=== PATIENT | male | born 1965 | race Caucasian/White ===

== ENCOUNTER 2017-03-01 14:53 | Emergency (ER) | payer BC, SELFPAY ==
[2017-03-01] MEDS ORDERED: methylPREDNISolone SOD SUCCI 125 MG/2 ML VIAL IV STA (15:42)
[2017-03-01] MEDS ORDERED: diphenhydrAMINE 50 MG/ML 1 ML VIAL IVP STA (15:42)
[2017-03-01] MEDS ORDERED: FAMOTIDINE 20 MG/2 ML VIAL IV STA (15:42)
[2017-03-01] MEDS ORDERED: SODIUM CHLORIDE 0.9% 500 ML IV STA (15:42)
--- NOTE | 2017-03-01 15:54 | ED ---
General Adult HPI - General Chief complaint: Skin/Abscess/Foreign Body Stated complaint: Rash Source: patient Mode of arrival: ambulatory Limitations: no limitations - History of Present Illness Initial comments: 51-year-old male presenting for evaluation of diffuse rash over his entire body that started this morning. He states that the rash started as an itching and redness and is now progressed to raised welts all over his body. He denies any changes in his dietary habits, no new medications although he started a new pack of Symbicort last night. 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 Other than that pruritus he denies any other associated symptoms including eruptions in the skin, dyspnea, dysphagia, chest pain, shortness of breath, fevers, chills. This never happened to him before and he denies any ALLERGIES. He has taken no medications for relief of his symptoms. - Related Data Home Medications Medication Instructions Recorded Confirmed Albuterol Inhaler [Ventolin Hfa 2 puff INHALATION RT-Q6H PRN 08/22/16 08/22/16 Inhaler] Atorvastatin [Lipitor] 40 mg PO DAILY 08/22/16 08/22/16 Hydrocodone/Acetaminophen 1 tab PO Q6H PRN 08/22/16 08/22/16 [Hydrocodon-Acetaminoph 7.5-325] Metoprolol Tartrate [Lopressor] 25 mg PO DAILY 08/22/16 08/22/16 Multivitamins, Thera [Multivitamin 1 tab PO DAILY 08/22/16 08/22/16 (formulary)] amLODIPine BESYLATE [Amlodipine 10 mg PO DAILY 08/22/16 08/22/16 Besylate] Aspirin 325 mg PO DAILY 03/01/17 03/01/17 Budesonide/Formoterol Fumarate 2 puff INHALATION RT-BID 03/01/17 03/01/17 [Symbicort 160-4.5 Mcg Inhaler] Ipratropium [place] [Atrovent Hfa] 2 puff INHALATION RT-QID PRN 03/01/17 Lisinopril [Prinivil] 10 mg PO DAILY 03/01/17 03/01/17 Nicotine Polacrilex [Quit 4] 4 mg BUCCAL Q2H PRN 03/01/17 03/01/17 Previous Rx's Medication Instructions Recorded EPINEPHrine [Epipen 2-Rodrigo] 0.3 mg IJ ONCE PRN #1 auto.injct 03/01/17 Allergies Allergy/AdvReac Type Severity Reaction Status Date / Time No Known Allergies Allergy Verified 03/01/17 16:30 Review of Systems ROS Statement: Those systems with pertinent positive or pertinent negative responses have been documented in the HPI. ROS Other: All systems not noted in ROS Statement are negative. Constitutional: Denies: fever, chills Eyes: Denies: eye pain, eye discharge ENT: Denies: ear pain, throat pain Respiratory: Denies: cough, dyspnea, wheezes Cardiovascular: Denies: chest pain, palpitations, dyspnea on exertion Endocrine: Denies: fatigue, polydipsia, polyuria Gastrointestinal: Denies: abdominal pain, nausea, vomiting Genitourinary: Denies: urgency, dysuria Musculoskeletal: Denies: back pain, arthralgia Skin: Reports: rash, change in color, pruritus. Denies: change in hair/nails Neurological: Denies: headache, weakness Psychiatric: Denies: anxiety, depression Hematological/Lymphatic: Denies: easy bleeding, easy bruising Past Medical History Past Medical History: Coronary Artery Disease (CAD), COPD, Hyperlipidemia, Hypertension, Liver Disease Additional Past Medical History / Comment(s): CHRONIC RECURRENT BRONCHITIS, CHRONIC LOWER BACK PAIN SPINAL STENOSIS, SCOLIOSIS, SPINAL, ALCOHOLISM ( 8 BEERS DAILY), HYPERTENSION, HYPERLIPIDEMIA, CORONARY ARTERY DISEASE, ABNORMAL LFT'S History of Any Multi-Drug Resistant Organisms: None Reported Past Surgical History: Heart Catheterization Additional Past Surgical History / Comment(s): COLONOSCOPY/POLYPECTOMY(BENIGN) Past Anesthesia/Blood Transfusion Reactions: No Reported Reaction Past Psychological History: No Psychological Hx Reported Smoking Status: Former smoker Past Alcohol Use History: Daily Additional Past Alcohol Use History / Comment(s): STARTED SMOKING AT AGE 11- SEVERAL ATTEMPTS AT QUITING-HAS'NT SMOKED IN A MONTH. PT ADMITS TO DRINKING 8 BEER PER DAY. DENIES ANY DRUG USE. Past Drug Use History: None Reported - Past Family History Father Family Medical History: Myocardial Infarction ([place]) Additional Family Medical History / Comment(s): AT AGE 56 FROM [place] Mother Family Medical History: Cancer, Coronary Artery Disease (CAD) Additional Family Medical History / Comment(s): BREAST CANCER METS TO BONE, CABG , EMPHYSEMA General Exam Limitations: no limitations General appearance: alert, in no apparent distress Head exam: Present: atraumatic, normocephalic, normal inspection Eye exam: Present: normal appearance, PERRL, EOMI. Absent: scleral icterus, conjunctival injection, periorbital swelling ENT exam: Present: normal exam, mucous membranes moist Neck exam: Present: normal inspection. Absent: tenderness, meningismus, lymphadenopathy Respiratory exam: Present: normal lung sounds bilaterally. Absent: respiratory distress, wheezes, rales, rhonchi, stridor Cardiovascular Exam: Present: regular rate, normal rhythm, normal heart sounds. Absent: systolic murmur, diastolic murmur, rubs, gallop, clicks GI/Abdominal exam: Present: soft, normal bowel sounds. Absent: distended, tenderness, guarding, rebound, rigid Rectal exam: Present: deferred Extremities exam: Present: normal inspection, full ROM, normal capillary refill. Absent: tenderness, pedal edema, joint swelling, calf tenderness Back exam: Present: normal inspection Neurological exam: Present: alert, oriented X3, CN II-XII intact Psychiatric exam: Present: normal affect, normal mood Skin exam: Present: warm, dry, intact, erythema, urticaria. Absent: cyanosis, diaphoretic, petechiae, pallor, abrasion Course Vital Signs 03/01/17 15:21 Temperature 99.1 F Pulse Rate 84 Respiratory 18 Rate Blood Pressure 138/78 O2 Sat by Pulse 96 Oximetry Medical Decision Making - Medical Decision Making 51-year-old male presented for evaluation of ALLERGIC reaction symptoms with pruritic, erythematous, and raised rash across his entire body. He denies any changes in his diet, work, large urgent, clothes, or change in medications although he just had his Symbicort refilled and started taking it last night. On physical examination he has an urticarial rash with clear lung sounds bilaterally and a non-erythematous nonswollen oropharynx. Patient was provided with IV doses of Benadryl, famotidine, and Solu-Medrol as well as IV fluids and on repeat physical exam he had resolution of pruritus, resolution of erythema, and welts had markedly regressed. Although no etiology can be identified the patient is stable for discharge home. Also provide the patient with epi-pens and discussion had with the patient concerning appropriate uses. Concerning the Symbicort the patient was told that he should have another refill made as this is the only change in his home status. He was advised to follow-up with his primary care physician but to return to this facility if his symptoms should worsen or persist. He acknowledged an understanding of this information and agreed with this plan of care. Disposition Clinical Impression: Allergic reaction Disposition: HOME SELF-CARE Condition: Stable Instructions: General Allergic Reaction (ED), Urticaria (ED), Anaphylaxis (ED) Additional Instructions: Please use medication as discussed. Please follow up with family doctor if symptoms have not improved over the next two days. Please return to the emergency room if your symptoms increase or worsen or for any other concerns. Prescriptions: EPINEPHrine [Epipen 2-Rodrigo] 0.3 mg IJ ONCE PRN #1 auto.injct PRN Reason: Allergic Reaction Time of Disposition: 16:40
[2017-03-01 16:55] VITALS: BP 129/77; PULSE 60; RESP 16; TEMP 98.1
== END 2017-03-01 16:56 | disposition home or self-care (01) ==
LOC: EC 14:53
DX: T78.40XA Allergy, unspecified, initial encounter (principal); E78.5 Hyperlipidemia, unspecified; I10 Essential (primary) hypertension; I25.10 Atherosclerotic heart disease of native coronary artery without angina pectoris; J44.9 Chronic obstructive pulmonary disease, unspecified; Z79.52 Long term (current) use of systemic steroids; Z87.891 Personal history of nicotine dependence; Z79.82 Long term (current) use of aspirin; Z79.899 Other long term (current) drug therapy
CPT/HCPCS: 99282; 96374; 96375 ×2; J1200; J2930

== ENCOUNTER 2017-04-25 10:45 | Inpatient (IN) | payer BC ==
[2017-04-25] MEDS ORDERED: ALBUTEROL NEBULIZED 2.5 MG/3 ML INHALATION STA ×2 (10:51→10:53)
--- NOTE | 2017-04-25 11:11 | ED ---
General Adult HPI - General Chief complaint: Shortness of Breath Stated complaint: diff breathing Time Seen by Provider: 04/25/17 10:47 Source: patient, EMS, RN notes reviewed Mode of arrival: EMS Limitations: no limitations - History of Present Illness Initial comments: this is a 51-year-old male presents emergency room with past medical history significant for significant smoking. Patient states this morning he woke up inside of difficulty breathing and Progressively worse. Patient called EMS because he was extremely short of breath. Patient states in route to get steroids and a breathing treatment he feels better already. Patient denies any chest pain or palpitations. Patient denies any fever chills or cough recently. Patient denies abdominal pain patient denies nausea vomiting or diarrhea. Patient denies any lightheadedness dizziness or near syncopal episode. - Related Data Home Medications Medication Instructions Recorded Confirmed Albuterol Inhaler [Ventolin Hfa 2 puff INHALATION RT-QID PRN 08/22/16 04/25/17 Inhaler] Hydrocodone/Acetaminophen 1 tab PO Q6H PRN 08/22/16 04/25/17 [Hydrocodon-Acetaminoph 7.5-325] Metoprolol Tartrate [Lopressor] 25 mg PO DAILY 08/22/16 04/25/17 Multivitamins, Thera [Multivitamin 1 tab PO DAILY 08/22/16 04/25/17 (formulary)] amLODIPine BESYLATE [Amlodipine 10 mg PO DAILY 08/22/16 04/25/17 Besylate] Aspirin 325 mg PO DAILY 03/01/17 04/25/17 Budesonide/Formoterol Fumarate 2 puff INHALATION RT-BID 03/01/17 04/25/17 [Symbicort 160-4.5 Mcg Inhaler] Ipratropium [place] [Atrovent Hfa] 2 puff INHALATION RT-QID PRN 03/01/17 Lisinopril [Prinivil] 10 mg PO DAILY 03/01/17 04/25/17 Nicotine Polacrilex [Quit 4] 4 mg BUCCAL Q2H PRN 03/01/17 04/25/17 Previous Rx's Medication Instructions Recorded EPINEPHrine [Epipen 2-Rodrigo] 0.3 mg IJ ONCE PRN #1 auto.injct 03/01/17 Allergies Allergy/AdvReac Type Severity Reaction Status Date / Time meloxicam [From Mobic] AdvReac Nausea Verified 04/25/17 11:19 Review of Systems ROS Statement: Those systems with pertinent positive or pertinent negative responses have been documented in the HPI. ROS Other: All systems not noted in ROS Statement are negative. Past Medical History Past Medical History: Coronary Artery Disease (CAD), COPD, Hyperlipidemia, Hypertension, Liver Disease Additional Past Medical History / Comment(s): CHRONIC RECURRENT BRONCHITIS, CHRONIC LOWER BACK PAIN SPINAL STENOSIS, SCOLIOSIS, SPINAL, ALCOHOLISM ( 8 BEERS DAILY), HYPERTENSION, HYPERLIPIDEMIA, CORONARY ARTERY DISEASE, ABNORMAL LFT'S History of Any Multi-Drug Resistant Organisms: None Reported Past Surgical History: Heart Catheterization Additional Past Surgical History / Comment(s): COLONOSCOPY/POLYPECTOMY(BENIGN) Past Anesthesia/Blood Transfusion Reactions: No Reported Reaction Past Psychological History: No Psychological Hx Reported Smoking Status: Former smoker Past Alcohol Use History: Daily Additional Past Alcohol Use History / Comment(s): STARTED SMOKING AT AGE 11- SEVERAL ATTEMPTS AT QUITING-HAS'NT SMOKED IN A MONTH. PT ADMITS TO DRINKING 8 BEER PER DAY. DENIES ANY DRUG USE. Past Drug Use History: None Reported - Past Family History Father Family Medical History: Myocardial Infarction ([place]) Additional Family Medical History / Comment(s): AT AGE 56 FROM [place] Mother Family Medical History: Cancer, Coronary Artery Disease (CAD) Additional Family Medical History / Comment(s): BREAST CANCER METS TO BONE, CABG , EMPHYSEMA General Exam - General Exam Comments Initial Comments: GENERAL: Patient is well-developed and well-nourished. Patient is nontoxic and well- hydrated and is in mild distress. ENT: Neck is soft and supple. No significant lymphadenopathy is noted. Oropharynx is clear. Moist mucous membranes. Neck has full range of motion without eliciting any pain. EYES: The sclera were anicteric and conjunctiva were pink and moist. Extraocular movements were intact and pupils were equal round and reactive to light. Eyelids were unremarkable. PULMONARY: Patient diminished breath sounds CARDIOVASCULAR: There is a regular rate and rhythm without any murmurs gallops or rubs. ABDOMEN: Soft and nontender with normal bowel sounds. No palpable organomegaly was noted. There is no palpable pulsatile mass. SKIN: Skin is clear with no lesions or rashes and otherwise unremarkable. NEUROLOGIC: Patient is alert and oriented x3. Cranial nerves II through XII are grossly intact. Motor and sensory are also intact. Normal speech, volume and content. Symmetrical smile. MUSCULOSKELETAL: Normal extremities with adequate strength and full range of motion. LYMPHATICS: No significant lymphadenopathy is noted PSYCHIATRIC: Normal psychiatric evaluation. Normal interpersonal interactions appears functionally intact in deals appropriately with others. No signs of depression. No signs of anxiety. Limitations: no limitations Course Vital Signs 04/25/17 04/25/17 04/25/17 10:47 10:56 10:57 Temperature 98.4 F Pulse Rate 125 H 107 H 129 H Respiratory 30 H 28 H Rate Blood Pressure 153/99 138/90 O2 Sat by Pulse 100 94 L Oximetry 04/25/17 04/25/17 04/25/17 11:05 11:10 12:00 Temperature 99.2 F 98.0 F Pulse Rate 111 H 125 H 102 H Respiratory 28 H 28 H Rate Blood Pressure 143/74 O2 Sat by Pulse 96 96 Oximetry 04/25/17 04/25/17 04/25/17 12:15 12:58 14:10 Temperature 100.6 F H Pulse Rate 108 H 104 H 98 Respiratory 22 20 20 Rate Blood Pressure 166/102 138/82 151/82 O2 Sat by Pulse 99 96 94 L Oximetry Procedures - Chest Tube Insertion Consent Obtained: verbal consent Time Out Performed: Yes Side of Procedure: left Indication: Pneumothorax Site Prep: Chloroprep Local Anesthesia: Lidocaine 1%, With Epi Insertion Site: 5th Intercostal Space, Midaxillary Scalpel: #15 Open into Pleural Space Using: Trocar Tube Size (Armenian): 28 Returns: Air Sutured in Place: Yes Type of Suture: Nylon Attached to Suction: Yes Type of Suction: Pleuravac Repeat X-ray Results: Lung Inflated Patient Tolerated Procedure: well Complications: Pain Medical Decision Making - Medical Decision Making EKG shows sinus tachycardia at 122 bpm AK interval is 158 QRS is 92 QT interval 316 QTC is 450. Patient's EKG shows no ST segment elevation or depression or T- wave abdomen is noted. Patient spiked a fever at 2:00 at which point in time I ordered Levaquin blood cultures and lactic acid was already admitted this time - Lab Data Result diagrams: 04/25/17 11:00 04/25/17 11:00 Lab Results 04/25/17 04/25/17 04/25/17 Range/Units 11:00 11:00 11:00 WBC 16.0 H (3.8-10.6) k/uL RBC 5.46 (4.30-5.90) m/uL Hgb 16.3 (13.0-17.5) gm/dL Hct 50.1 (39.0-53.0) % MCV 91.7 (80.0-100.0) fL MCH 29.9 (25.0-35.0) pg MCHC 32.6 (31.0-37.0) g/dL RDW 13.9 (11.5-15.5) % Plt Count 269 (150-450) k/uL Neutrophils % 67 % Lymphocytes % 22 % Monocytes % 7 % Eosinophils % 1 % Basophils % 1 % Neutrophils # 10.7 H (1.3-7.7) k/uL Lymphocytes # 3.6 (1.0-4.8) k/uL Monocytes # 1.1 H (0-1.0) k/uL Eosinophils # 0.2 (0-0.7) k/uL Basophils # 0.1 (0-0.2) k/uL PT (9.0-12.0) sec INR (<1.1) APTT (22.0-30.0) sec Sodium 143 (137-145) mmol/L Potassium 3.9 (3.5-5.1) mmol/L Chloride 109 H (98-107) mmol/L Carbon Dioxide 19 L (22-30) mmol/L Anion Gap 15 mmol/L BUN 9 (9-20) mg/dL Creatinine 0.75 (0.66-1.25) mg/dL Est GFR (MDRD) Af Amer >60 (>60 ml/min/1.73 sqM) Est GFR (MDRD) Non-Af >60 (>60 ml/min/1.73 sqM) Glucose 133 H (74-99) mg/dL Calcium 9.7 (8.4-10.2) mg/dL Magnesium 1.9 (1.6-2.3) mg/dL Total Bilirubin 0.7 (0.2-1.3) mg/dL AST 73 H (17-59) U/L ALT 98 H (21-72) U/L Alkaline Phosphatase 86 (38-126) U/L Total Creatine Kinase 43 L (55-170) U/L CK-MB (CK-2) 1.0 (0.0-2.4) ng/mL CK-MB (CK-2) Rel Index 2.3 Troponin I 0.016 (0.000-0.034) ng/mL Total Protein 7.8 (6.3-8.2) g/dL Albumin 4.8 (3.5-5.0) g/dL 04/25/17 Range/Units 11:00 WBC (3.8-10.6) k/uL RBC (4.30-5.90) m/uL Hgb (13.0-17.5) gm/dL Hct (39.0-53.0) % MCV (80.0-100.0) fL MCH (25.0-35.0) pg MCHC (31.0-37.0) g/dL RDW (11.5-15.5) % Plt Count (150-450) k/uL Neutrophils % % Lymphocytes % % Monocytes % % Eosinophils % % Basophils % % Neutrophils # (1.3-7.7) k/uL Lymphocytes # (1.0-4.8) k/uL Monocytes # (0-1.0) k/uL Eosinophils # (0-0.7) k/uL Basophils # (0-0.2) k/uL PT 10.2 (9.0-12.0) sec INR 1.0 (<1.1) APTT 22.9 (22.0-30.0) sec Sodium (137-145) mmol/L Potassium (3.5-5.1) mmol/L Chloride (98-107) mmol/L Carbon Dioxide (22-30) mmol/L Anion Gap mmol/L BUN (9-20) mg/dL Creatinine (0.66-1.25) mg/dL Est GFR (MDRD) Af Amer (>60 ml/min/1.73 sqM) Est GFR (MDRD) Non-Af (>60 ml/min/1.73 sqM) Glucose (74-99) mg/dL Calcium (8.4-10.2) mg/dL Magnesium (1.6-2.3) mg/dL Total Bilirubin (0.2-1.3) mg/dL AST (17-59) U/L ALT (21-72) U/L Alkaline Phosphatase (38-126) U/L Total Creatine Kinase (55-170) U/L CK-MB (CK-2) (0.0-2.4) ng/mL CK-MB (CK-2) Rel Index Troponin I (0.000-0.034) ng/mL Total Protein (6.3-8.2) g/dL Albumin (3.5-5.0) g/dL Critical Care Time Critical Care Time: Yes Total Critical Care Time: 35 Disposition Clinical Impression: Pneumothorax, Acute exacerbation of chronic obstructive airways disease Disposition: ADMITTED IP TO THIS [facility] Time of Disposition: 13:37
[2017-04-25 11:18] LABS: Basophils # (A) 0.1 k/uL (0-0.2); Basophils % (A) 1 %; CH 30.4; CHCM 33.3; Eosinophils # (A) 0.2 k/uL (0-0.7); Eosinophils % (A) 1 %; HCT 50.1 % (39.0-53.0); HDW 2.35; HGB 16.3 gm/dL (13.0-17.5); Luc # (Auto) 0.41; Luc % (Auto) 3; Lymphocytes # (A) 3.6 k/uL (1.0-4.8); Lymphocytes % (A) 22 %; MCH 29.9 pg (25.0-35.0); MCHC 32.6 g/dL (31.0-37.0); MCV 91.7 fL (80.0-100.0); Mean Platelet Volume 7.2; Monocytes # (A) 1.1 k/uL (0-1.0); Monocytes % (A) 7 %; Neutrophils # (A) 10.7 k/uL (1.3-7.7); Neutrophils % (A) 67 %; RBC 5.46 m/uL (4.30-5.90); RDW 13.9 % (11.5-15.5); WBC (Perox) 15.81
[2017-04-25 11:26] LABS: Partial Thromboplastin Time 22.9 sec (22.0-30.0); Prothrombin Time 10.2 sec (9.0-12.0)
[2017-04-25 11:40] LABS: ALT 98 U/L (21-72); AST 73 U/L (17-59); Alkaline Phosphatase 86 U/L (38-126); Anion Gap 15 mmol/L; Blood Urea Nitrogen 9 mg/dL (9-20); Calcium 9.7 mg/dL (8.4-10.2); Carbon Dioxide 19 mmol/L (22-30); Chloride 109 mmol/L (98-107); Glucose 133 mg/dL (74-99); Magnesium 1.9 mg/dL (1.6-2.3); Non-African American GFR(MDRD) >60 (>60 ml/min/1.73 sqM); Potassium 3.9 mmol/L (3.5-5.1); Sodium 143 mmol/L (137-145); Total Bilirubin 0.7 mg/dL (0.2-1.3); Total Protein 7.8 g/dL (6.3-8.2)
[2017-04-25 11:55] LABS: Troponin I 0.016 ng/mL (0.000-0.034)
[2017-04-25] MEDS ORDERED: HYDROmorphone 1 MG/ML 1 ML SYRINGE IVP STA ×2 (12:53→12:59)
[2017-04-25] MEDS ORDERED: ETOMIDATE 2 MG/ML 10 ML VIAL IVP STA (12:54)
--- NOTE | 2017-04-25 12:54 | XR ---
EXAMINATION TYPE: XR chest 1V portable DATE OF EXAM: 04/25/2017 COMPARISON: April 25, 2017 HISTORY: Pneumothorax, left-sided chest tube TECHNIQUE: Single frontal view of the chest is obtained. FINDINGS: There is been left-sided chest tube placed with its distal tip overlying the left lung apex. There ap pears to have been near complete reexpansion of the left lung. Small amount of subcutaneous emphysema is noted. Mediastinal structures are felt to be midline although patient is slightly rotated. The right lung is clear. Heart and hilar structures are unremarkable. IMPRESSION: 1. Near complete reexpansion of the left lung. Mediastinal structures appear midline. Subcutaneous ai r.
[2017-04-25] MEDS ORDERED: NITROGLYCERIN OINT 1 INCH/GM PACKET TOPICAL STA (13:02)
[2017-04-25] MEDS ORDERED: ASPIRIN 81 MG CHEW PO STA (13:02)
--- NOTE | 2017-04-25 13:26 | XR ---
EXAMINATION TYPE: XR chest 2V DATE OF EXAM: 04/25/2017 COMPARISON: NONE HISTORY: 08/22/2016 TECHNIQUE: Frontal and lateral views of the chest are obtained. FINDINGS: There is a massive left-sided pneumothorax estimated at greater than 80%. There is mild me diastinal shift from left to right. The right lung is clear. Calcified mediastinal lymph nodes are se en. Bony thorax is grossly intact although the study is somewhat limited given the technique. IMPRESSION: 1. Massive left-sided pneumothorax with mild mediastinal shift from left to right. Study reviewed with the ER attending at the time of the interpretation.
[2017-04-25] MEDS ORDERED: LEVOFLOXACIN 750MG-D5W PMX 750 MG in DEXTROSE/WATER 1 150ML.BAG IVPB STA (14:14)
[2017-04-25] MEDS ORDERED: SODIUM CHLORIDE 0.9% 1,000 ML IV ONE ×2 (14:14→14:52)
[2017-04-25] MEDS ORDERED: ACETAMINOPHEN TAB 500 MG TAB PO PRN (14:20)
--- NOTE | 2017-04-25 15:15 | P.GSCN ---
<Judit Coleman - Last Filed: 04/25/17 15:05> History of Present Illness Consult date: 04/25/17 Reason for Consult: Left-sided pneumothorax, status post chest tube insertion. Requesting physician: Emir Rivera History of present illness: This 51-year-old male patient presented to the emergency room after he woke up with difficulty breathing. He states he was in the bathroom, had a coughing fit , and developed extreme shortness of breath. He did try his albuterol inhaler with no relief. He denied chest pain, palpitations, fever, chills, nausea, vomiting, abdominal pain, lightheadedness, dizziness, sick contacts. He states that he does have COPD and quit smoking last June but has never had shortness of breath this bad before. Chest x-ray was done in the emergency room revealing a massive left-sided pneumothorax estimated to be greater then 80% with slight mediastinal shift. The emergency room physician placed a left- sided pleural chest tube with complete reexpansion of the lung, and cardiothoracic surgery was consulted for chest tube management. Review of Systems 14 point review systems was completed and was negative except as noted. - Cardiovascular Reports as per HPI - Respiratory Reports as per HPI Past Medical History Past Medical History: Coronary Artery Disease (CAD), COPD, Hyperlipidemia, Hypertension, Liver Disease Additional Past Medical History / Comment(s): CHRONIC RECURRENT BRONCHITIS, CHRONIC LOWER BACK PAIN SPINAL STENOSIS, SCOLIOSIS, CHRONIC LOW FUENTES PAIN, ETOH ( 8 BEERS DAILY), ABNORMAL LFT'S, PT HAS HAD ABDOMINAL PAIN ON AND OFF FOR 4 YRS -SCHEDULED TO GO TO [facility] 05/07/17 FOR WORK UP. History of Any Multi-Drug Resistant Organisms: None Reported Past Surgical History: Heart Catheterization Additional Past Surgical History / Comment(s): 2009 CARDIAC CATH-TREATED MEDICALLY, COLONOSCOPIES/POLYPECTOMY(BENIGN) Past Anesthesia/Blood Transfusion Reactions: No Reported Reaction Past Psychological History: No Psychological Hx Reported Additional Psychological History / Comment(s): PT RESIDES WITH HIS SPOUSE WHO IS CURRENTLY BEING TREATED FOR CANCER WITH CHEMO AND SOON TO START RADIATION THERAPY. HE IS INDEPENDENT. Smoking Status: Former smoker Past Alcohol Use History: Daily, Heavy Additional Past Alcohol Use History / Comment(s): STARTED SMOKING AT AGE 11- SEVERAL ATTEMPTS AT QUITING-HAS'NT SMOKED SINCE JUNE 2016 AND IS USING LOZENGES. PT ADMITS TO DRINKING 8 BEER PER DAY. DENIES ANY DRUG USE. Past Drug Use History: None Reported - Past Family History Father Family Medical History: Myocardial Infarction ([place]) Additional Family Medical History / Comment(s): AT AGE 56 FROM [place] Mother Family Medical History: Cancer, Coronary Artery Disease (CAD) Additional Family Medical History / Comment(s): BREAST CANCER METS TO BONE, CABG , EMPHYSEMA Medications and Allergies Home Medications Medication Instructions Recorded Confirmed Type Albuterol Inhaler [Ventolin Hfa 2 puff INHALATION RT-QID PRN 08/22/16 04/25/17 History Inhaler] Hydrocodone/Acetaminophen 1 tab PO Q6H PRN 08/22/16 04/25/17 History [Hydrocodon-Acetaminoph 7.5-325] Metoprolol Tartrate [Lopressor] 25 mg PO DAILY 08/22/16 04/25/17 History Multivitamins, Thera [Multivitamin 1 tab PO DAILY 08/22/16 04/25/17 History (formulary)] amLODIPine BESYLATE [Amlodipine 10 mg PO DAILY 08/22/16 04/25/17 History Besylate] Aspirin 325 mg PO DAILY 03/01/17 04/25/17 History Budesonide/Formoterol Fumarate 2 puff INHALATION RT-BID 03/01/17 04/25/17 History [Symbicort 160-4.5 Mcg Inhaler] Ipratropium [place] [Atrovent Hfa] 2 puff INHALATION RT-QID PRN 03/01/17 History Lisinopril [Prinivil] 10 mg PO DAILY 03/01/17 04/25/17 History Nicotine Polacrilex [Quit 4] 4 mg BUCCAL Q2H PRN 03/01/17 04/25/17 History Allergies Allergy/AdvReac Type Severity Reaction Status Date / Time meloxicam [From Mobic] AdvReac Nausea Verified 04/25/17 11:19 Surgical - Exam Vital Signs Temp Pulse Resp BP Pulse Ox 98.4 F 125 H 30 H 153/99 100 04/25/17 10:47 04/25/17 10:47 04/25/17 10:47 04/25/17 10:47 04/25/17 10:47 - General well developed, well nourished, no distress, no pain - Eyes PERRL, normal ocular movement - ENT no hearing loss - Neck trachea midline - Respiratory Lungs sounds diminished bilaterally. Respirations even, nonlabored. Currently on 4 L nasal cannula with oxygen saturation 95%. Left pleural chest tube present, connected to -20 cm wall suction, no air leak present. - Cardiovascular Rhythm: regular Heart Sounds: normal: S1, S2 - Abdomen Abdomen: soft, non tender, bowel sounds - Genitourinary Deferred - Rectum Deferred - Integumentary no rash - Neurologic normal coordination, normal sensation - Psychiatric oriented to time, oriented to person, oriented to place, speech is normal, memory intact Results - Labs 04/25/17 11:00 04/25/17 11:00 Abnormal Lab Results - Last 24 Hours (Table) 04/25/17 04/25/17 04/25/17 Range/Units 11:00 11:00 11:00 WBC 16.0 H (3.8-10.6) k/uL Neutrophils # 10.7 H (1.3-7.7) k/uL Monocytes # 1.1 H (0-1.0) k/uL Chloride 109 H (98-107) mmol/L Carbon Dioxide 19 L (22-30) mmol/L Glucose 133 H (74-99) mg/dL Plasma Lactic Acid Thompson (0.7-2.0) mmol/L AST 73 H (17-59) U/L ALT 98 H (21-72) U/L Total Creatine Kinase 43 L (55-170) U/L 04/25/17 Range/Units 11:00 WBC (3.8-10.6) k/uL Neutrophils # (1.3-7.7) k/uL Monocytes # (0-1.0) k/uL Chloride (98-107) mmol/L Carbon Dioxide (22-30) mmol/L Glucose (74-99) mg/dL Plasma Lactic Acid Thompson 2.7 H* (0.7-2.0) mmol/L AST (17-59) U/L ALT (21-72) U/L Total Creatine Kinase (55-170) U/L Diabetes panel 04/25/17 Range/Units 11:00 Sodium 143 (137-145) mmol/L Potassium 3.9 (3.5-5.1) mmol/L Chloride 109 H (98-107) mmol/L Carbon Dioxide 19 L (22-30) mmol/L BUN 9 (9-20) mg/dL Creatinine 0.75 (0.66-1.25) mg/dL Glucose 133 H (74-99) mg/dL Calcium 9.7 (8.4-10.2) mg/dL AST 73 H (17-59) U/L ALT 98 H (21-72) U/L Alkaline Phosphatase 86 (38-126) U/L Total Protein 7.8 (6.3-8.2) g/dL Albumin 4.8 (3.5-5.0) g/dL Calcium panel 04/25/17 Range/Units 11:00 Calcium 9.7 (8.4-10.2) mg/dL Albumin 4.8 (3.5-5.0) g/dL Pituitary panel 04/25/17 Range/Units 11:00 Sodium 143 (137-145) mmol/L Potassium 3.9 (3.5-5.1) mmol/L Chloride 109 H (98-107) mmol/L Carbon Dioxide 19 L (22-30) mmol/L BUN 9 (9-20) mg/dL Creatinine 0.75 (0.66-1.25) mg/dL Glucose 133 H (74-99) mg/dL Calcium 9.7 (8.4-10.2) mg/dL Adrenal panel 04/25/17 Range/Units 11:00 Sodium 143 (137-145) mmol/L Potassium 3.9 (3.5-5.1) mmol/L Chloride 109 H (98-107) mmol/L Carbon Dioxide 19 L (22-30) mmol/L BUN 9 (9-20) mg/dL Creatinine 0.75 (0.66-1.25) mg/dL Glucose 133 H (74-99) mg/dL Calcium 9.7 (8.4-10.2) mg/dL Total Bilirubin 0.7 (0.2-1.3) mg/dL AST 73 H (17-59) U/L ALT 98 H (21-72) U/L Alkaline Phosphatase 86 (38-126) U/L Total Protein 7.8 (6.3-8.2) g/dL Albumin 4.8 (3.5-5.0) g/dL - Imaging Chest x-ray: image reviewed Assessment and Plan (1) Tobacco dependence in remission Status: Acute (2) Acute exacerbation of chronic obstructive airways disease Status: Acute (3) Pneumothorax Status: Acute Plan: The patient was seen and examined in the emergency room with Dr. Pino. Chart/ diagnostics were reviewed. The patient appears comfortable in no acute distress at this time. Chest tube is functioning appropriately. We will order incentive spirometry, and monitor output and functionality of the chest tube. Plan of care has been explained to patient and his , all questions answered. Thank you for this consult. Please contact us with any questions. Time with Patient: Greater than 30 <Richar Pino - Last Filed: 04/25/17 16:39> Surgical - Exam Vital Signs Temp Pulse Resp BP Pulse Ox 98.4 F 125 H 30 H 153/99 100 04/25/17 10:47 04/25/17 10:47 04/25/17 10:47 04/25/17 10:47 04/25/17 10:47 Results - Labs 04/25/17 11:00 04/25/17 11:00 Abnormal Lab Results - Last 24 Hours (Table) 04/25/17 04/25/17 04/25/17 Range/Units 11:00 11:00 11:00 WBC 16.0 H (3.8-10.6) k/uL Neutrophils # 10.7 H (1.3-7.7) k/uL Monocytes # 1.1 H (0-1.0) k/uL Chloride 109 H (98-107) mmol/L Carbon Dioxide 19 L (22-30) mmol/L Glucose 133 H (74-99) mg/dL Plasma Lactic Acid Thompson (0.7-2.0) mmol/L AST 73 H (17-59) U/L ALT 98 H (21-72) U/L Total Creatine Kinase 43 L (55-170) U/L 04/25/17 Range/Units 11:00 WBC (3.8-10.6) k/uL Neutrophils # (1.3-7.7) k/uL Monocytes # (0-1.0) k/uL Chloride (98-107) mmol/L Carbon Dioxide (22-30) mmol/L Glucose (74-99) mg/dL Plasma Lactic Acid Thompson 2.7 H* (0.7-2.0) mmol/L AST (17-59) U/L ALT (21-72) U/L Total Creatine Kinase (55-170) U/L Diabetes panel 04/25/17 Range/Units 11:00 Sodium 143 (137-145) mmol/L Potassium 3.9 (3.5-5.1) mmol/L Chloride 109 H (98-107) mmol/L Carbon Dioxide 19 L (22-30) mmol/L BUN 9 (9-20) mg/dL Creatinine 0.75 (0.66-1.25) mg/dL Glucose 133 H (74-99) mg/dL Calcium 9.7 (8.4-10.2) mg/dL AST 73 H (17-59) U/L ALT 98 H (21-72) U/L Alkaline Phosphatase 86 (38-126) U/L Total Protein 7.8 (6.3-8.2) g/dL Albumin 4.8 (3.5-5.0) g/dL Calcium panel 04/25/17 Range/Units 11:00 Calcium 9.7 (8.4-10.2) mg/dL Albumin 4.8 (3.5-5.0) g/dL Pituitary panel 04/25/17 Range/Units 11:00 Sodium 143 (137-145) mmol/L Potassium 3.9 (3.5-5.1) mmol/L Chloride 109 H (98-107) mmol/L Carbon Dioxide 19 L (22-30) mmol/L BUN 9 (9-20) mg/dL Creatinine 0.75 (0.66-1.25) mg/dL Glucose 133 H (74-99) mg/dL Calcium 9.7 (8.4-10.2) mg/dL Adrenal panel 04/25/17 Range/Units 11:00 Sodium 143 (137-145) mmol/L Potassium 3.9 (3.5-5.1) mmol/L Chloride 109 H (98-107) mmol/L Carbon Dioxide 19 L (22-30) mmol/L BUN 9 (9-20) mg/dL Creatinine 0.75 (0.66-1.25) mg/dL Glucose 133 H (74-99) mg/dL Calcium 9.7 (8.4-10.2) mg/dL Total Bilirubin 0.7 (0.2-1.3) mg/dL AST 73 H (17-59) U/L ALT 98 H (21-72) U/L Alkaline Phosphatase 86 (38-126) U/L Total Protein 7.8 (6.3-8.2) g/dL Albumin 4.8 (3.5-5.0) g/dL Assessment and Plan Plan: The patient was seen and examined. I agree with the above assessment and plan. The patient is a 51-year-old male with a history of tobacco use and COPD who presented to the emergency department this morning with left-sided chest pain. Chest x-ray revealed a large left sided pneumothorax. A chest tube was placed by the emergency department physician. Follow-up chest x-ray revealed reexpansion of the left lung. There is no evidence of air leak at this time. Given that this is the patient's first episode of spontaneous pneumothorax, we will elect to treat it conservatively. He will be admitted to the hospital for chest tube management.
[2017-04-25] MEDS ORDERED: HYDROcodone/APAP 7.5-325MG 1 EACH TAB PO PRN (15:43)
--- NOTE | 2017-04-25 15:43 | P.HPIM ---
History of Present Illness H&P Date: 04/25/17 51-year-Old gentleman with history of COPD states that he initially did not start feeling well last night started to have some chills this morning noted to have a raspy voice with a cough that has been persistent for over 10 minutes. Thereafter patient was having significant shortness of breath. Patient given to the emergency room as he thought he was having a COPD exacerbation. Patient was noted to have a large left-sided pneumothorax Patient does have a diagnosis COPD was never informed yes emphysema in the past Patient underwent a chest tube placement in the emergency room A repeat chest x-ray complete resolution of pneumothorax is seen There is some subcutaneous free air which is seen on the repeat x-ray EKG did not reveal any ST-T wave changes did have a white count elevation of 16,000 States that his cough is improved since admission Review of Systems All systems: negative (Noted in HPI) Past Medical History Past Medical History: Coronary Artery Disease (CAD), COPD, Hyperlipidemia, Hypertension, Liver Disease Additional Past Medical History / Comment(s): CHRONIC RECURRENT BRONCHITIS, CHRONIC LOWER BACK PAIN SPINAL STENOSIS, SCOLIOSIS, CHRONIC LOW FUENTES PAIN, ETOH ( 8 BEERS DAILY), ABNORMAL LFT'S, PT HAS HAD ABDOMINAL PAIN ON AND OFF FOR 4 YRS -SCHEDULED TO GO TO [facility] 05/07/17 FOR WORK UP. History of Any Multi-Drug Resistant Organisms: None Reported Past Surgical History: Heart Catheterization Additional Past Surgical History / Comment(s): 2009 CARDIAC CATH-TREATED MEDICALLY, COLONOSCOPIES/POLYPECTOMY(BENIGN) Past Anesthesia/Blood Transfusion Reactions: No Reported Reaction Past Psychological History: No Psychological Hx Reported Additional Psychological History / Comment(s): PT RESIDES WITH HIS SPOUSE WHO IS CURRENTLY BEING TREATED FOR CANCER WITH CHEMO AND SOON TO START RADIATION THERAPY. HE IS INDEPENDENT. Smoking Status: Former smoker Past Alcohol Use History: Daily, Heavy Additional Past Alcohol Use History / Comment(s): STARTED SMOKING AT AGE 11- SEVERAL ATTEMPTS AT QUITING-HAS'NT SMOKED SINCE JUNE 2016 AND IS USING LOZENGES. PT ADMITS TO DRINKING 8 BEER PER DAY. DENIES ANY DRUG USE. Past Drug Use History: None Reported - Past Family History Father Family Medical History: Myocardial Infarction ([place]) Additional Family Medical History / Comment(s): AT AGE 56 FROM [place] Mother Family Medical History: Cancer, Coronary Artery Disease (CAD) Additional Family Medical History / Comment(s): BREAST CANCER METS TO BONE, CABG , EMPHYSEMA Medications and Allergies Home Medications Medication Instructions Recorded Confirmed Type Albuterol Inhaler [Ventolin Hfa 2 puff INHALATION RT-QID PRN 08/22/16 04/25/17 History Inhaler] Hydrocodone/Acetaminophen 1 tab PO Q6H PRN 08/22/16 04/25/17 History [Hydrocodon-Acetaminoph 7.5-325] Metoprolol Tartrate [Lopressor] 25 mg PO DAILY 08/22/16 04/25/17 History Multivitamins, Thera [Multivitamin 1 tab PO DAILY 08/22/16 04/25/17 History (formulary)] amLODIPine BESYLATE [Amlodipine 10 mg PO DAILY 08/22/16 04/25/17 History Besylate] Aspirin 325 mg PO DAILY 03/01/17 04/25/17 History Budesonide/Formoterol Fumarate 2 puff INHALATION RT-BID 03/01/17 04/25/17 History [Symbicort 160-4.5 Mcg Inhaler] Ipratropium [place] [Atrovent Hfa] 2 puff INHALATION RT-QID PRN 03/01/17 History Lisinopril [Prinivil] 10 mg PO DAILY 03/01/17 04/25/17 History Nicotine Polacrilex [Quit 4] 4 mg BUCCAL Q2H PRN 03/01/17 04/25/17 History Allergies Allergy/AdvReac Type Severity Reaction Status Date / Time meloxicam [From Mobic] AdvReac Nausea Verified 04/25/17 11:19 Physical Exam Vitals: Vital Signs Temp Pulse Resp BP Pulse Ox 04/25/17 14:53 95 20 140/80 95 04/25/17 14:26 100 20 135/96 95 04/25/17 14:10 100.6 F H 98 20 151/82 94 L 04/25/17 12:58 104 H 20 138/82 96 04/25/17 12:15 108 H 22 166/102 99 04/25/17 12:00 98.0 F 102 H 28 H 143/74 96 04/25/17 11:10 99.2 F 125 H 28 H 96 04/25/17 11:05 111 H 04/25/17 10:57 129 H 28 H 138/90 94 L 04/25/17 10:56 107 H 04/25/17 10:47 98.4 F 125 H 30 H 153/99 100 Intake and Output 04/25/17 04/25/17 04/25/17 06:59 14:59 22:59 Other: Weight 77.111 kg Patient Weight 04/26/17 06:59 Weight 77.111 kg Physical exam Gen. appearance oriented 3 in no distress Neck is supple no JVD Lungs silent chest no significant wheezing or rhonchi Tenderness over the chest tube insertion Heart S1-S2 heard regular rate and rhythm no murmurs appreciated Abdomen is soft nontender no organomegaly bowel sounds are intact Neurologically cranial nerves II-12 grossly intact no focal motor or sensory deficits noted Skin no abnormalities appreciated Results CBC & Chem 7: 04/25/17 11:00 04/25/17 11:00 Labs: Abnormal Lab Results - Last 24 Hours (Table) 04/25/17 04/25/17 04/25/17 Range/Units 11:00 11:00 11:00 WBC 16.0 H (3.8-10.6) k/uL Neutrophils # 10.7 H (1.3-7.7) k/uL Monocytes # 1.1 H (0-1.0) k/uL Chloride 109 H (98-107) mmol/L Carbon Dioxide 19 L (22-30) mmol/L Glucose 133 H (74-99) mg/dL Plasma Lactic Acid Thompson (0.7-2.0) mmol/L AST 73 H (17-59) U/L ALT 98 H (21-72) U/L Total Creatine Kinase 43 L (55-170) U/L 04/25/17 Range/Units 11:00 WBC (3.8-10.6) k/uL Neutrophils # (1.3-7.7) k/uL Monocytes # (0-1.0) k/uL Chloride (98-107) mmol/L Carbon Dioxide (22-30) mmol/L Glucose (74-99) mg/dL Plasma Lactic Acid Thompson 2.7 H* (0.7-2.0) mmol/L AST (17-59) U/L ALT (21-72) U/L Total Creatine Kinase (55-170) U/L Thrombosis Risk Factor Assmnt - Choose All That Apply Any of the Below Risk Factors Present?: Yes Each Factor Represents 1 point: Abnormal pulmonary function (COPD), Age 41-60 years Other Risk Factors: No Other congenital or acquired thrombophilia - If yes, enter type in comment: No Thrombosis Risk Factor Assessment Total Risk Factor Score: 2 Thrombosis Risk Factor Assessment Level: Low Risk Assessment and Plan Plan: 1. Left-sided spontaneous pneumothorax which is likely induced by heavy coughing a patient with COPD and emphysema #2 history of hypertension. #3 dyslipidemia #4 acute bronchitis. #5 COPD that is stable without an exacerbation plan Continue ongoing care chest tube management per cardiothoracic surgery will start the patient on doxycycline will give short burst of Solu-Medrol to help with bronchitis patient be kept on breathing treatments and incentive spirometer Pain control at the site of chest tube placement subcu emphysema is noted repeat chest x-ray in the morning
[2017-04-25] MEDS: SYMBICORT 160-4.5 MCG INHALER INHALATION SCH (19:43)
[2017-04-25] MEDS ORDERED: KETOROLAC 30 MG/ML 1 ML VIAL IVP PRN (20:02)
[2017-04-25] MEDS: LORazepam 1 MG TAB PO PRN (20:16)
[2017-04-25] MEDS: HYDROcodone/APAP 10-325MG 1 EACH TAB PO PRN (20:16)
[2017-04-25] MEDS: methylPREDNISolone SOD SUCCI 40 MG/ML 1 ML VIAL IV SCH (20:17)
[2017-04-25] MEDS: MAG HYDROX/AL HYDROX/SIMETH 30 ML CUP PO PRN (20:17)
[2017-04-25] MEDS: DOXYCYCLINE 50 MG CAP PO SCH (20:17)
[2017-04-25 20:32] LABS: Glucose,Whole Blood 162 mg/dL (75-99)
[2017-04-26] MEDS: INSULIN LISPRO (humaLOG) 300 UNIT/3 ML VIAL SQ SCH ×5 (01:44→23:06)
[2017-04-26] MEDS: HYDROcodone/APAP 10-325MG 1 EACH TAB PO PRN ×3 (01:54→15:45)
[2017-04-26 03:14] LABS: Appearance,Urine Clear (Clear); Bilirubin,Urine Negative (Negative); Glucose,Urine (UA) Trace (Negative); Ketones,Urine Negative (Negative); Leukocyte Esterase,Urine Negative (Negative); Nitrite,Urine Negative (Negative); PH, Urine 6.5 (5.0-8.0); Protein,Urine Negative (Negative); Specific Gravity,Urine 1.008 (1.001-1.035); UA Billing (MACRO vs. MICRO) CHEM; Urobilinogen,Urine <2.0 mg/dL (<2.0)
[2017-04-26 06:36] LABS: Glucose,Whole Blood 142 mg/dL (75-99)
--- NOTE | 2017-04-26 08:03 | XR ---
EXAMINATION TYPE: XR chest 1V portable DATE OF EXAM: 04/26/2017 HISTORY: Follow-up pneumothorax COMPARISON: April 25, 2017 TECHNIQUE: Single view of the chest is submitted. FINDINGS: Demonstrated are scattered senescent parenchymal change. Left-sided chest tube is in place. No evidence for residual pneumothorax. Mild pleural thickening lef t costophrenic angle. Subcutaneous air has improved. There is no evidence for focal infiltrate. The heart is stable. Hilar and mediastinal structures are within normal limits. Degenerative changes are seen of the dorsal spine. IMPRESSION: 1. Left-sided chest tube is in place. No evidence for residual pneumothorax.
[2017-04-26] MEDS: LISINOPRIL 10 MG TAB PO SCH (08:45)
[2017-04-26] MEDS: amLODIPine 10 MG TAB PO SCH (08:45)
[2017-04-26] MEDS: METOPROLOL TARTRATE 25 MG TAB PO SCH (08:45)
[2017-04-26] MEDS: methylPREDNISolone SOD SUCCI 40 MG/ML 1 ML VIAL IV SCH ×2 (08:52→23:04)
[2017-04-26] MEDS: DOXYCYCLINE 50 MG CAP PO SCH ×2 (08:53→23:04)
[2017-04-26] MEDS: SYMBICORT 160-4.5 MCG INHALER INHALATION SCH ×2 (08:55→19:12)
--- NOTE | 2017-04-26 10:36 | P.PN ---
<Glenn Bender - Last Filed: 04/26/17 10:35> Progress Note - Text CV Surgery Nursing Principal diagnosis: Left-sided pneumothorax. Status post day #1 of left-sided chest tube insertion. Patient awake and alert, no distress noted, no specific complaints. He is sitting up to the bedside. Vital Signs: Afebrile Vital Signs - 24 hr 04/25/17 04/25/17 04/25/17 10:47 10:56 10:57 Temperature 98.4 F Pulse Rate 125 H 107 H 129 H Pulse Rate [ Pulse Oximetery ] Respiratory 30 H 28 H Rate Blood Pressure 153/99 138/90 Blood Pressure [Left Arm] O2 Sat by Pulse 100 94 L Oximetry 04/25/17 04/25/17 04/25/17 11:05 11:10 12:00 Temperature 99.2 F 98.0 F Pulse Rate 111 H 125 H 102 H Pulse Rate [ Pulse Oximetery ] Respiratory 28 H 28 H Rate Blood Pressure 143/74 Blood Pressure [Left Arm] O2 Sat by Pulse 96 96 Oximetry 04/25/17 04/25/17 04/25/17 12:15 12:58 14:10 Temperature 100.6 F H Pulse Rate 108 H 104 H 98 Pulse Rate [ Pulse Oximetery ] Respiratory 22 20 20 Rate Blood Pressure 166/102 138/82 151/82 Blood Pressure [Left Arm] O2 Sat by Pulse 99 96 94 L Oximetry 04/25/17 04/25/17 04/25/17 14:26 14:53 15:35 Temperature 97.6 F Pulse Rate 100 95 Pulse Rate [ 91 Pulse Oximetery ] Respiratory 20 20 20 Rate Blood Pressure 135/96 140/80 Blood Pressure 141/78 [Left Arm] O2 Sat by Pulse 95 95 93 L Oximetry 04/25/17 04/25/17 04/26/17 20:00 23:56 03:51 Temperature 99.3 F 98.9 F 98.3 F Pulse Rate Pulse Rate [ 97 98 94 Pulse Oximetery ] Respiratory 19 19 19 Rate Blood Pressure Blood Pressure 149/79 137/80 156/90 [Left Arm] O2 Sat by Pulse 98 96 97 Oximetry Labs: No new lab results. IV Fluids: 0.9% normal saline at 100 mL per hour. Lungs: Expiratory wheezes throughout, diminished bilateral bases. Respirations are symmetrical and unlabored. O2 sat: 97% on room air. I/S: 1250 mL, reviewed with the patient important of using his incentive spirometry every hour while awake. The patient did give a good return demonstration on his incentive spirometry. Heart: S1S2, regular rhythm and rate, negative for S3, gallop or murmur. Remote telemetry showing normal sinus rhythm heart rate 90. Sequential compression devices in place to his bilateral lower extremities. Abdomen: Soft, nontender. Positive bowel sounds present in all 4 quadrants. U/O: Adequate, 750 mL output in the last 8 hours. Chest Tubes: Left pleural chest tube without air leak, remains to low continuous wall suction. Draining scant amount of thin serosanguineous drainage. 10 mL output since the chest tube was placed yesterday. 24 hr Total: Intake & Output 04/24/17 04/25/17 04/26/17 04/27/17 06:59 06:59 06:59 06:59 Intake Total 1270 Output Total 1150 Balance 120 Weight 67.5 kg Active Medications Acetaminophen (Tylenol Tab) 1,000 mg PO Q6HR PRN PRN Reason: Fever and/ or Mild Pain Last Admin: 04/25/17 14:23 Dose: 1,000 mg Hydrocodone Bitart/Acetaminophen ([place] 10) 1 each PO Q6H PRN PRN Reason: Moderate Pain Last Admin: 04/26/17 08:45 Dose: 1 each Al Hydroxide/Mg Hydroxide (Maalox) 30 ml PO Q4HR PRN PRN Reason: GI Upset Last Admin: 04/25/17 20:17 Dose: 30 ml Amlodipine Besylate (Norvasc) 10 mg PO DAILY [facility] Last Admin: 04/26/17 08:45 Dose: 10 mg Budesonide/Formoterol Fumarate (Symbicort 160-4.5 Mcg Inhaler) 2 puff INHALATION RT-BID [facility] Last Admin: 04/26/17 08:55 Dose: 2 puff Doxycycline Monohydrate (Vibramycin) 100 mg PO BID [facility] Last Admin: 04/26/17 08:53 Dose: 100 mg Insulin Human Lispro (Humalog) 0 unit SQ ACHS [facility] PRN Reason: Protocol Last Admin: 04/26/17 06:44 Dose: 2 unit Ketorolac Tromethamine (Toradol) 30 mg IVP Q6HR PRN PRN Reason: Muscle Pain Stop: 04/29/17 20:03 Lisinopril (Zestril) 10 mg PO DAILY [facility] Last Admin: 04/26/17 08:45 Dose: 10 mg Lorazepam (Ativan) 1 mg PO TID PRN PRN Reason: Alcohol Withdrawal Last Admin: 04/25/17 20:16 Dose: 1 mg Methylprednisolone Sodium Succinate (Solu-Medrol) 30 mg IV Q12HR [facility] Last Admin: 04/26/17 08:52 Dose: 30 mg Metoprolol Tartrate (Lopressor) 25 mg PO DAILY [facility] Last Admin: 04/26/17 08:45 Dose: 25 mg Plan: 1. We will place to chest tube to [facility] today and potentially discontinue the chest tube in the a.m. 2. Pain management per when necessary orders continue Toradol and [place]. 3. Obtain a 2 view chest x-ray in the a.m. <Richar Pino - Last Filed: 04/26/17 10:47> Progress Note - Text The patient was seen and examined. I agree with the above assessment and plan. There is no evidence of air leak from his chest tube today. His chest x-ray reveals no evidence of residual pneumothorax. We will place him to [facility]. We will repeat a chest x-ray in the morning.
[2017-04-26 11:47] LABS: Glucose,Whole Blood 167 mg/dL (75-99)
[2017-04-26] MEDS ORDERED: LEVOFLOXACIN 750MG-D5W PMX 750 MG in DEXTROSE/WATER 1 150ML.BAG IVPB SCH (14:30)
[2017-04-26] MEDS: LORazepam 1 MG TAB PO PRN ×2 (15:49→23:07)
[2017-04-26 17:32] LABS: Glucose,Whole Blood 157 mg/dL (75-99)
--- NOTE | 2017-04-26 18:26 | P.PN ---
Subjective 51-year-Old gentleman with history of COPD states that he initially did not start feeling well last night started to have some chills this morning noted to have a raspy voice with a cough that has been persistent for over 10 minutes. Thereafter patient was having significant shortness of breath. Patient given to the emergency room as he thought he was having a COPD exacerbation. Patient was noted to have a large left-sided pneumothorax Patient does have a diagnosis COPD was never informed yes emphysema in the past Patient underwent a chest tube placement in the emergency room A repeat chest x-ray complete resolution of pneumothorax is seen There is some subcutaneous free air which is seen on the repeat x-ray EKG did not reveal any ST-T wave changes did have a white count elevation of 16,000 States that his cough is improved since admission 04/26/17 cough is improved states to have significant pain at the chest tube site NO fevers,chills, nausea,vomiting, diarrhea reported. Physical exam Gen. appearance oriented 3 in no distress Neck is supple no JVD Lungs silent chest no significant wheezing or rhonchi Tenderness over the chest tube insertion Heart S1-S2 heard regular rate and rhythm no murmurs appreciated Abdomen is soft nontender no organomegaly bowel sounds are intact Neurologically cranial nerves II-12 grossly intact no focal motor or sensory deficits noted Skin no abnormalities appreciated Objective - Vital Signs Vital signs: Vital Signs Temp 96.8 F L 04/26/17 15:57 Pulse 78 04/26/17 15:57 Resp 20 04/26/17 15:57 BP 129/77 04/26/17 15:57 Pulse Ox 95 04/26/17 15:57 Intake & Output 04/25/17 04/26/17 04/26/17 18:59 06:59 18:59 Intake Total 708 275 3454 Output Total 1150 2700 Balance 720 -600 -1220 Weight 77.111 kg 67.5 kg Intake: IV 150 Levofloxacin 750Mg-D5w 150 Pmx 750 mg In Dextrose/ Water 1 150ml.bag @ 100 mls/hr IVPB ONCE STA Rx#: [id number] Intake, IV Titration 507 213 8314 Amount Levofloxacin 750Mg-D5w 100 Pmx 750 mg In Dextrose/ Water 1 150ml.bag @ 100 mls/hr IVPB Q24H [facility] Rx#: [id number] Sodium Chloride 0.9% 1, 285 083 2541 000 ml @ 999 mls/hr IV . Q1H1M ONE Rx#:[id number] Oral 120 280 Output: Chest Tube Drainage 0 Chest Tube Left Pleural/ 0 Mediastinal Urine 1150 2700 Other: Voiding Method Urinal # Voids 1 1 - Labs CBC & Chem 7: 04/25/17 11:00 04/25/17 11:00 Labs: Abnormal Lab Results - Last 24 Hours (Table) 04/25/17 04/25/17 04/26/17 Range/Units 20:07 20:26 02:40 POC Glucose (mg/dL) 162 H (75-99) mg/dL Plasma Lactic Acid Thompson 2.9 H* (0.7-2.0) mmol/L Urine Glucose (UA) Trace H (Negative) 04/26/17 04/26/17 04/26/17 Range/Units 06:33 11:35 17:15 POC Glucose (mg/dL) 142 H 167 H 157 H (75-99) mg/dL Plasma Lactic Acid Thompson (0.7-2.0) mmol/L Urine Glucose (UA) (Negative) Microbiology - Last 24 Hours (Table) 04/25/17 11:00 Blood Culture - Preliminary Blood No Growth after 24 hours Assessment and Plan Plan: 1. Left-sided spontaneous pneumothorax which is likely induced by heavy coughing a patient with COPD and emphysema #2 history of hypertension. #3 dyslipidemia #4 acute bronchitis. #5 COPD that is stable without an exacerbation plan symptoms of bronchitis have improved water seal at this time increase norco 2 tabs 7.5/325mg q6h prn Pain control at the site of chest tube placement subcu emphysema is noted repeat chest x-ray in the morning
[2017-04-26 20:50] LABS: Glucose,Whole Blood 131 mg/dL (75-99)
[2017-04-26] MEDS: HYDROcodone/APAP 7.5-325MG 1 EACH TAB PO PRN (23:07)
[2017-04-27 06:08] LABS: Glucose,Whole Blood 161 mg/dL (75-99)
[2017-04-27 06:11] LABS: Basophils % (A) 0 %; CH 30.2; CHCM 32.7; Eosinophils % (A) 0 %; HCT 46.8 % (39.0-53.0); HDW 2.29; HGB 15.2 gm/dL (13.0-17.5); Luc # (Auto) 0.14; Luc % (Auto) 1; Lymphocytes # (A) 1.2 k/uL (1.0-4.8); Lymphocytes % (A) 8 %; MCH 30.2 pg (25.0-35.0); MCHC 32.5 g/dL (31.0-37.0); MCV 92.7 fL (80.0-100.0); Mean Platelet Volume 7.3; Monocytes # (A) 0.8 k/uL (0-1.0); Monocytes % (A) 5 %; Neutrophils # (A) 13.3 k/uL (1.3-7.7); Neutrophils % (A) 86 %; RBC 5.05 m/uL (4.30-5.90); WBC 15.5 k/uL (3.8-10.6); WBC (Perox) 15.49
[2017-04-27] MEDS: INSULIN LISPRO (humaLOG) 300 UNIT/3 ML VIAL SQ SCH ×4 (06:15→21:25)
[2017-04-27] MEDS: HYDROcodone/APAP 7.5-325MG 1 EACH TAB PO PRN ×3 (06:25→21:39)
[2017-04-27 06:28] LABS: ALT 68 U/L (21-72); AST 39 U/L (17-59); Alkaline Phosphatase 61 U/L (38-126); Anion Gap 9 mmol/L; Blood Urea Nitrogen 13 mg/dL (9-20); Calcium 9.4 mg/dL (8.4-10.2); Carbon Dioxide 25 mmol/L (22-30); Chloride 106 mmol/L (98-107); Glucose 157 mg/dL (74-99); Non-African American GFR(MDRD) >60 (>60 ml/min/1.73 sqM); Potassium 4.3 mmol/L (3.5-5.1); Sodium 140 mmol/L (137-145); Total Bilirubin 0.6 mg/dL (0.2-1.3); Total Protein 6.3 g/dL (6.3-8.2)
[2017-04-27] MEDS: LISINOPRIL 10 MG TAB PO SCH (08:50)
[2017-04-27] MEDS: methylPREDNISolone SOD SUCCI 40 MG/ML 1 ML VIAL IV SCH ×2 (08:50→21:25)
[2017-04-27] MEDS: METOPROLOL TARTRATE 25 MG TAB PO SCH (08:50)
[2017-04-27] MEDS: DOXYCYCLINE 50 MG CAP PO SCH ×2 (08:50→21:24)
[2017-04-27] MEDS: amLODIPine 10 MG TAB PO SCH (08:50)
--- NOTE | 2017-04-27 09:06 | XR ---
EXAMINATION TYPE: XR chest 1V portable DATE OF EXAM: 04/27/2017 HISTORY: Shortness of breath. COMPARISON: 04/26/2017 TECHNIQUE: Single view of the chest is submitted. FINDINGS: Left-sided chest tube is unchanged in position. No evidence for sizable pneumothorax. Demonstrated are scattered senescent parenchymal change. There is no evidence for focal infiltrate. The heart is stable. Hilar and mediastinal structures are within normal limits. Degenerative changes are seen of the dorsal spine. IMPRESSION: 1. Left-sided chest tube is unchanged in position. No evidence for sizable pneumothorax.
[2017-04-27] MEDS: SYMBICORT 160-4.5 MCG INHALER INHALATION SCH ×2 (09:49→20:52)
[2017-04-27] MEDS: MAG HYDROX/AL HYDROX/SIMETH 30 ML CUP PO PRN (11:24)
[2017-04-27 11:55] LABS: Glucose,Whole Blood 134 mg/dL (75-99)
--- NOTE | 2017-04-27 12:59 | P.PN ---
Progress Note - Text CV Surgery Nursing Principal diagnosis: Left-sided pneumothorax. Status post day #2 of left-sided chest tube insertion. Patient awake and alert, no distress noted, no specific complaints. His is at his bedside, questions answered. Vital Signs: Afebrile Vital Signs - 24 hr 04/26/17 04/26/17 04/27/17 15:57 19:39 00:00 Temperature 96.8 F L 98.2 F 98.6 F Pulse Rate [ 78 94 86 Pulse Oximetery ] Respiratory 20 18 17 Rate Blood Pressure 129/77 119/77 144/88 [Left Arm] O2 Sat by Pulse 95 93 L 94 L Oximetry 04/27/17 04/27/17 04:00 08:00 Temperature 98.7 F 98.4 F Pulse Rate [ 77 82 Pulse Oximetery ] Respiratory 18 20 Rate Blood Pressure 138/89 112/76 [Left Arm] O2 Sat by Pulse 93 L 95 Oximetry Labs: Short CBC 04/27/17 Range/Units 05:34 WBC 15.5 H (3.8-10.6) k/uL Hgb 15.2 (13.0-17.5) gm/dL Hct 46.8 (39.0-53.0) % Plt Count 248 (150-450) k/uL Neutrophils # 13.3 H (1.3-7.7) k/uL BMP 04/27/17 05:34 Sodium 140 Potassium 4.3 Chloride 106 Carbon Dioxide 25 BUN 13 Creatinine 0.70 Glucose 157 H Calcium 9.4 Liver Function 04/27/17 Range/Units 05:34 Total Bilirubin 0.6 (0.2-1.3) mg/dL AST 39 (17-59) U/L ALT 68 (21-72) U/L Alkaline Phosphatase 61 (38-126) U/L Albumin 4.0 (3.5-5.0) g/dL IV Fluids: 0.9% normal saline at 20 mL per hour. Lungs: Essentially clear throughout, diminished bilateral bases. Respirations are symmetrical and unlabored. O2 sat: 93% on room air. I/S: 1250 mL, reviewed with the patient the importance of using his incentive spirometry every hour while awake. The patient gave a good return demonstration on his incentive spirometry. Heart: S1S2, regular rhythm and rate, remote telemetry showing normal sinus rhythm heart rate 77. Left pleural chest tube insertion site clean dry. Dressing dry and intact. Abdomen: Soft, nontender. Positive bowel sounds present in all 4 quadrants. CBGs: 131-167 mg/dL in the last 24 hours. U/O: Adequate. Chest Tubes: Left pleural chest tube without air leak, remains to waterseal. Draining scant thin serosanguineous drainage. 10 mL output in the last 24 hours. 24 hr Total: Intake & Output 04/25/17 04/26/17 04/27/17 04/28/17 06:59 06:59 06:59 06:59 Intake Total 1270 1480 Output Total 1150 4304 Balance 120 -2824 Weight 67.5 kg 75.5 kg Active Medications Acetaminophen (Tylenol Tab) 1,000 mg PO Q6HR PRN PRN Reason: Fever and/ or Mild Pain Last Admin: 04/25/17 14:23 Dose: 1,000 mg Hydrocodone Bitart/Acetaminophen ([place] 7.5-325) 2 each PO Q6H PRN PRN Reason: Pain Last Admin: 04/27/17 06:25 Dose: 2 each Al Hydroxide/Mg Hydroxide (Maalox) 30 ml PO Q4HR PRN PRN Reason: GI Upset Last Admin: 04/27/17 11:24 Dose: 30 ml Amlodipine Besylate (Norvasc) 10 mg PO DAILY [facility] Last Admin: 04/27/17 08:50 Dose: 10 mg Budesonide/Formoterol Fumarate (Symbicort 160-4.5 Mcg Inhaler) 2 puff INHALATION RT-BID [facility] Last Admin: 04/27/17 09:49 Dose: Not Given Doxycycline Monohydrate (Vibramycin) 100 mg PO BID [facility] Last Admin: 04/27/17 08:50 Dose: 100 mg Insulin Human Lispro (Humalog) 0 unit SQ ACHS [facility] PRN Reason: Protocol Last Admin: 04/27/17 06:15 Dose: 3 unit Ketorolac Tromethamine (Toradol) 30 mg IVP Q6HR PRN PRN Reason: Muscle Pain Stop: 04/29/17 20:03 Lisinopril (Zestril) 10 mg PO DAILY [facility] Last Admin: 04/27/17 08:50 Dose: 10 mg Lorazepam (Ativan) 1 mg PO TID PRN PRN Reason: Alcohol Withdrawal Last Admin: 04/26/17 23:07 Dose: 1 mg Methylprednisolone Sodium Succinate (Solu-Medrol) 30 mg IV Q12HR [facility] Last Admin: 04/27/17 08:50 Dose: 30 mg Metoprolol Tartrate (Lopressor) 25 mg PO DAILY [facility] Last Admin: 04/27/17 08:50 Dose: 25 mg Plan: 1. We will remove his left pleural chest tube today 2. We will obtain a chest x-ray 1 hour after the chest tube was removed, and obtain a 2 view chest x-ray in the a.m. 3. Medical management per primary care service.
--- NOTE | 2017-04-27 14:19 | XR ---
EXAMINATION TYPE: XR chest 1V portable DATE OF EXAM: 04/27/2017 1:23 PM COMPARISON: 04/27/2017 HISTORY: Chest tube removal TECHNIQUE: Single frontal view of the chest is obtained. FINDINGS: Heart and mediastinum are normal. Lungs are clear. I see no definite pneumothorax. Trachea is midline. There are calcified granulomata in the mediastinum. There are chest leads. IMPRESSION: There is been removal of the chest tube since the exam this morning. No pneumothorax see n.
[2017-04-27 17:16] LABS: Glucose,Whole Blood 128 mg/dL (75-99)
--- NOTE | 2017-04-27 17:26 | P.PN ---
Subjective 51-year-Old gentleman with history of COPD states that he initially did not start feeling well last night started to have some chills this morning noted to have a raspy voice with a cough that has been persistent for over 10 minutes. Thereafter patient was having significant shortness of breath. Patient given to the emergency room as he thought he was having a COPD exacerbation. Patient was noted to have a large left-sided pneumothorax Patient does have a diagnosis COPD was never informed yes emphysema in the past Patient underwent a chest tube placement in the emergency room A repeat chest x-ray complete resolution of pneumothorax is seen There is some subcutaneous free air which is seen on the repeat x-ray EKG did not reveal any ST-T wave changes did have a white count elevation of 16,000 States that his cough is improved since admission 04/26/17 cough is improved states to have significant pain at the chest tube site NO fevers,chills, nausea,vomiting, diarrhea reported. 04/27/17 pain is better controlled today s/p removal of chest tube no fevers, chills, nausea, vomiting, diarrhea Physical exam Gen. appearance oriented 3 in no distress Neck is supple no JVD Lungs silent chest no significant wheezing or rhonchi Heart S1-S2 heard regular rate and rhythm no murmurs appreciated Abdomen is soft nontender no organomegaly bowel sounds are intact Neurologically cranial nerves II-12 grossly intact no focal motor or sensory deficits noted Skin no abnormalities appreciated Objective - Vital Signs Vital signs: Vital Signs Temp 97.6 F 04/27/17 15:50 Pulse 78 04/27/17 15:50 Resp 20 04/27/17 15:50 BP 128/75 04/27/17 15:50 Pulse Ox 94 L 04/27/17 15:50 Intake & Output 04/26/17 04/27/17 04/27/17 18:59 06:59 18:59 Intake Total 1480 Output Total 2700 1604 350 Balance -1220 -1604 -350 Weight 75.5 kg Intake: Intake, IV Titration 1200 Amount Sodium Chloride 0.9% 1, 1200 000 ml @ 999 mls/hr IV . Q1H1M ONE Rx#:[id number] Oral 280 Output: Chest Tube Drainage 0 4 Chest Tube Left Pleural/ 0 4 Mediastinal Urine 2700 1600 350 Other: Voiding Method Urinal # Voids 1 0 - Labs CBC & Chem 7: 04/27/17 05:34 04/27/17 05:34 Labs: Abnormal Lab Results - Last 24 Hours (Table) 04/26/17 04/26/17 04/27/17 Range/Units 17:15 20:48 05:34 WBC 15.5 H (3.8-10.6) k/uL Neutrophils # 13.3 H (1.3-7.7) k/uL Glucose (74-99) mg/dL POC Glucose (mg/dL) 157 H 131 H (75-99) mg/dL 04/27/17 04/27/17 04/27/17 Range/Units 05:34 06:03 11:28 WBC (3.8-10.6) k/uL Neutrophils # (1.3-7.7) k/uL Glucose 157 H (74-99) mg/dL POC Glucose (mg/dL) 161 H 134 H (75-99) mg/dL 04/27/17 Range/Units 17:04 WBC (3.8-10.6) k/uL Neutrophils # (1.3-7.7) k/uL Glucose (74-99) mg/dL POC Glucose (mg/dL) 128 H (75-99) mg/dL Microbiology - Last 24 Hours (Table) 04/25/17 11:00 Blood Culture - Preliminary Blood No Growth after 48 hours Assessment and Plan Plan: 1. Left-sided spontaneous pneumothorax which is likely induced by heavy coughing a patient with COPD and emphysema #2 history of hypertension. #3 dyslipidemia #4 acute bronchitis. #5 COPD that is stable without an exacerbation plan symptoms of bronchitis have improved pain control repeat chest x-ray in the morning. Likely dc home if no residual pneumothorax is noted
[2017-04-27 21:09] LABS: Glucose,Whole Blood 174 mg/dL (75-99)
[2017-04-27 22:04] VITALS: RESP 18
[2017-04-27] MEDS: LORazepam 1 MG TAB PO PRN (23:27)
[2017-04-28 06:14] LABS: Glucose,Whole Blood 126 mg/dL (75-99)
[2017-04-28] MEDS: INSULIN LISPRO (humaLOG) 300 UNIT/3 ML VIAL SQ SCH ×2 (06:44→12:40)
--- NOTE | 2017-04-28 08:12 | XR ---
EXAMINATION TYPE: XR chest 2V DATE OF EXAM: 04/28/2017 HISTORY: Left pneumothorax status post chest tube. REFERENCE: Previous study dated 04/27/2017. FINDINGS: The lungs appear clear. Pleural space are clear. Heart size is normal. I do not see evidenc e of pneumothorax. IMPRESSION: NORMAL CHEST.
[2017-04-28] MEDS: SYMBICORT 160-4.5 MCG INHALER INHALATION SCH (08:18)
[2017-04-28] MEDS: LISINOPRIL 10 MG TAB PO SCH (08:50)
[2017-04-28] MEDS: amLODIPine 10 MG TAB PO SCH (08:50)
[2017-04-28] MEDS: METOPROLOL TARTRATE 25 MG TAB PO SCH (08:50)
[2017-04-28] MEDS: DOXYCYCLINE 50 MG CAP PO SCH (08:51)
[2017-04-28] MEDS: methylPREDNISolone SOD SUCCI 40 MG/ML 1 ML VIAL IV SCH (08:51)
[2017-04-28] MEDS: HYDROcodone/APAP 7.5-325MG 1 EACH TAB PO PRN (08:56)
[2017-04-28 09:53] VITALS: PULSE 78; TEMP 97.5
--- NOTE | 2017-04-28 11:17 | P.PN ---
Subjective Principal diagnosis: Spontaneous left-sided pneumothorax, POD #3 chest tube insertion. Patient's left sided chest tube was discontinued yesterday. Follow-up x-ray this morning demonstrates no pneumothorax. Patient sitting up in bed in no apparent distress, eating breakfast, denies chest pain, shortness of breath. Objective - Vital Signs Vital signs: Vital Signs Temp 96.9 F L 04/28/17 04:00 Pulse 61 04/28/17 04:00 Resp 18 04/28/17 04:00 BP 114/58 04/28/17 04:00 Pulse Ox 96 04/28/17 04:00 Intake & Output 04/27/17 04/28/17 04/28/17 18:59 06:59 18:59 Intake Total 670 300 Output Total 1750 Balance -1080 300 Weight 75.3 kg Intake: Oral 670 300 Output: Urine 1750 Other: Voiding Method Urinal # Voids 0 1 - Constitutional General appearance: Present: cooperative, no acute distress - Respiratory Details: Lungs sounds diminished bilaterally. Respirations even, nonlabored. Currently on room air with oxygen saturation 96%. - Cardiovascular Rhythm: regular Heart sounds: normal: S1, S2 - Gastrointestinal Gastrointestinal Comment(s): Abdomen soft, nontender, nondistended. Active bowel sounds 4 quadrants. Tolerating diet. - Genitourinary Genitourinary Comment(s): Continues to void clear, yellow urine. - Integumentary Integumentary Comment(s): Dry, intact dressing over former left chest tube site. - Musculoskeletal Musculoskeletal: Present: gait normal, strength equal bilaterally - Psychiatric Psychiatric: Present: A&O x's 3, appropriate affect, intact judgment & insight - Allied health notes Allied health notes reviewed: nursing - Labs CBC & Chem 7: 04/27/17 05:34 04/27/17 05:34 Labs: Abnormal Lab Results - Last 24 Hours (Table) 04/27/17 04/27/17 04/27/17 Range/Units 11:28 17:04 20:42 POC Glucose (mg/dL) 134 H 128 H 174 H (75-99) mg/dL 04/28/17 Range/Units 06:07 POC Glucose (mg/dL) 126 H (75-99) mg/dL Microbiology - Last 24 Hours (Table) 04/25/17 11:00 Blood Culture - Preliminary Blood No Growth after 48 hours - Imaging and Cardiology Chest x-ray: image reviewed Assessment and Plan (1) Tobacco dependence in remission Status: Acute (2) Acute exacerbation of chronic obstructive airways disease Status: Acute (3) Pneumothorax Status: Acute Plan: The patient was seen and examined. Appears to be in no acute distress. Chest x -ray reviewed, no pneumothorax present post chest tube removal. Would continue to encourage incentive spirometer use. From cardiothoracic surgery standpoint patient can be discharged home. Time with Patient: Greater than 30
[2017-04-28 11:37] LABS: Glucose,Whole Blood 96 mg/dL (75-99)
[2017-04-28 12:38] VITALS: BP 136/83
--- NOTE | 2017-04-28 20:17 | P.DS ---
Providers Date of admission: 04/25/17 13:38 Attending physician: Devon Rizo MD Consults: 04/25/17 13:38 Consult Physician Routine Consulting Provider: Denny Brown Consult Reason/Comments: Pneumothorax Do you want consulting provider notified?: Yes Primary care physician: [facility] Course: 51-year-Old gentleman with history of COPD states that he initially did not start feeling well last night started to have some chills this morning noted to have a raspy voice with a cough that has been persistent for over 10 minutes. Thereafter patient was having significant shortness of breath. Patient given to the emergency room as he thought he was having a COPD exacerbation. Patient was noted to have a large left-sided pneumothorax Patient does have a diagnosis COPD was never informed yes emphysema in the past Patient underwent a chest tube placement in the emergency room A repeat chest x-ray complete resolution of pneumothorax is seen There is some subcutaneous free air which is seen on the repeat x-ray EKG did not reveal any ST-T wave changes did have a white count elevation of 16,000 States that his cough is improved since admission 04/26/17 cough is improved states to have significant pain at the chest tube site NO fevers,chills, nausea,vomiting, diarrhea reported. 04/27/17 pain is better controlled today s/p removal of chest tube no fevers, chills, nausea, vomiting, diarrhea 04/28/17 repeat cxr stable no abnormalities Physical exam Gen. appearance oriented 3 in no distress Neck is supple no JVD Lungs silent chest no significant wheezing or rhonchi Heart S1-S2 heard regular rate and rhythm no murmurs appreciated Abdomen is soft nontender no organomegaly bowel sounds are intact Neurologically cranial nerves II-12 grossly intact no focal motor or sensory deficits noted Skin no abnormalities appreciated Assessment and Plan Plan: 1. Left-sided spontaneous pneumothorax which is likely induced by heavy coughing in a patient with COPD and emphysema #2 history of hypertension. #3 dyslipidemia #4 acute bronchitis. #5 COPD that is stable without an exacerbation Plan - Discharge Summary New Discharge Prescriptions: New Doxycycline [Vibramycin] 100 mg PO BID #10 cap HYDROcodone/APAP 7.5-325MG [[place] 7.5-325] 2 each PO Q6H PRN #10 tab PRN Reason: Pain Continue amLODIPine BESYLATE [Amlodipine Besylate] 10 mg PO DAILY Hydrocodone/Acetaminophen [Hydrocodon-Acetaminoph 7.5-325] 1 tab PO Q6H PRN PRN Reason: Pain Albuterol Inhaler [Ventolin Hfa Inhaler] 2 puff INHALATION RT-QID PRN PRN Reason: Shortness Of Breath Or Wheezing Multivitamins, Thera [Multivitamin (formulary)] 1 tab PO DAILY Metoprolol Tartrate [Lopressor] 25 mg PO DAILY Ipratropium Evant [Atrovent Hfa] 2 puff INHALATION RT-QID PRN PRN Reason: sob Lisinopril [Prinivil] 10 mg PO DAILY Budesonide/Formoterol Fumarate [Symbicort 160-4.5 Mcg Inhaler] 2 puff INHALATION RT-BID Aspirin 325 mg PO DAILY Nicotine Polacrilex [Quit 4] 4 mg BUCCAL Q2H PRN PRN Reason: smoking EPINEPHrine [Epipen 2-Rodrigo] 0.3 mg IJ ONCE PRN #1 auto.injct PRN Reason: Allergic Reaction Discharge Medication List Albuterol Inhaler [Ventolin Hfa Inhaler] 2 puff INHALATION RT-QID PRN 08/22/16 [ History] Hydrocodone/Acetaminophen [Hydrocodon-Acetaminoph 7.5-325] 1 tab PO Q6H PRN [History] Metoprolol Tartrate [Lopressor] 25 mg PO DAILY 08/22/16 [History] Multivitamins, Thera [Multivitamin (formulary)] 1 tab PO DAILY 08/22/16 [History ] amLODIPine BESYLATE [Amlodipine Besylate] 10 mg PO DAILY 08/22/16 [History] Aspirin 325 mg PO DAILY 03/01/17 [History] Budesonide/Formoterol Fumarate [Symbicort 160-4.5 Mcg Inhaler] 2 puff INHALATION RT-BID 03/01/17 [History] EPINEPHrine [Epipen 2-Rodrigo] 0.3 mg IJ ONCE PRN #1 auto.injct 03/01/17 [Rx] Ipratropium Evant [Atrovent Hfa] 2 puff INHALATION RT-QID PRN 03/01/17 [ History] Lisinopril [Prinivil] 10 mg PO DAILY 03/01/17 [History] Nicotine Polacrilex [Quit 4] 4 mg BUCCAL Q2H PRN 03/01/17 [History] Doxycycline [Vibramycin] 100 mg PO BID #10 cap 04/28/17 [Rx] HYDROcodone/APAP 7.5-325MG [[place] 7.5-325] 2 each PO Q6H PRN #10 tab 04/28/17 [ Rx] Follow up Appointment(s)/Referral(s): Ramez Aragon MD [Primary Care Provider] - 1-2 days Patient Instructions/Handouts: Spontaneous Pneumothorax (DC), COPD (Chronic Obstructive Pulmonary Disease) (DC), How Your Lungs Work (DC) Discharge Disposition: HOME SELF-CARE
== END 2017-04-28 15:10 | disposition home or self-care (01) | DRG 200 ==
LOC: EC 10:45 → 6SEL 13:38
PROVIDERS: ADMIT Internal Medicine; ATTEND Internal Medicine
PROC: 0W9B30Z Drainage of Left Pleural Cavity with Drainage Device, Percutaneous Approach (ICD-10-PCS; principal; 2017-04-25)
DX: J93.0 Spontaneous tension pneumothorax (principal); J44.0 Chronic obstructive pulmonary disease with (acute) lower respiratory infection; J44.1 Chronic obstructive pulmonary disease with (acute) exacerbation; I10 Essential (primary) hypertension; E78.5 Hyperlipidemia, unspecified; F17.201 Nicotine dependence, unspecified, in remission; I25.10 Atherosclerotic heart disease of native coronary artery without angina pectoris; J20.9 Acute bronchitis, unspecified; M41.9 Scoliosis, unspecified; Z79.82 Long term (current) use of aspirin; Z79.899 Other long term (current) drug therapy; Z82.49 Family history of ischemic heart disease and other diseases of the circulatory system
CPT/HCPCS: 32551; 36415; 71010; 71020; 80053; 81003; 82550; 82553; 83605; 83735; 84484; 85025; 85610; 85730; 87040; 93005; 94640; 96361; 96365; 96375; 99291

== ENCOUNTER 2017-07-31 02:21 | Emergency (ER) | payer BC ==
[2017-07-31] MEDS ORDERED: ASPIRIN 81 MG PO STA (02:57)
[2017-07-31 03:08] VITALS: RESP 18
--- NOTE | 2017-07-31 03:15 | ED ---
Extremity Problem HPI - General Chief complaint: Extremity Problem,Nontraumatic Stated complaint: high BP,leg swelling Time Seen by Provider: 07/31/17 02:29 Source: patient, EMS Mode of arrival: EMS Limitations: no limitations - History of Present Illness Initial comments: This patient is a 51-year-old man who presents because he noted that when he took his socks off tonight there were significant indentations into his lower legs bilaterally the patient states that he is not usually get significant swelling. He states that he also noted that his blood pressure was somewhat elevated, with a systolic reading in the 180s. Patient denies chest symptoms, no chest pain, dyspnea, cough, palpitations. He does state that he has been feeling some generalized fatigue over the past couple of days. Patient denies any other more specific symptoms. He has not noted any change in urination or bowel movements. MD Complaint: extremity swelling -: hour(s) Location: bilateral lower extremity History of Same: No Radiation: none Improves with: nothing Worsens with: nothing Associated Symptoms: denies other symptoms - Related Data Home Medications Medication Instructions Recorded Confirmed Albuterol Inhaler [Ventolin Hfa 2 puff INHALATION RT-QID PRN 08/22/16 04/25/17 Inhaler] Hydrocodone/Acetaminophen 1 tab PO Q6H PRN 08/22/16 04/25/17 [Hydrocodon-Acetaminoph 7.5-325] Metoprolol Tartrate [Lopressor] 25 mg PO DAILY 08/22/16 04/25/17 Multivitamins, Thera [Multivitamin 1 tab PO DAILY 08/22/16 04/25/17 (formulary)] amLODIPine BESYLATE [Amlodipine 10 mg PO DAILY 08/22/16 04/25/17 Besylate] Aspirin 325 mg PO DAILY 03/01/17 04/25/17 Budesonide/Formoterol Fumarate 2 puff INHALATION RT-BID 03/01/17 04/25/17 [Symbicort 160-4.5 Mcg Inhaler] Ipratropium [place] [Atrovent Hfa] 2 puff INHALATION RT-QID PRN 03/01/17 Lisinopril [Prinivil] 10 mg PO DAILY 03/01/17 04/25/17 Nicotine Polacrilex [Quit 4] 4 mg BUCCAL Q2H PRN 03/01/17 04/25/17 Previous Rx's Medication Instructions Recorded EPINEPHrine [Epipen 2-Rodrigo] 0.3 mg IJ ONCE PRN #1 auto.injct 03/01/17 Doxycycline [Vibramycin] 100 mg PO BID #10 cap 04/28/17 HYDROcodone/APAP 7.5-325MG [[place] 2 each PO Q6H PRN #10 tab 04/28/17 7.5-325] Allergies Allergy/AdvReac Type Severity Reaction Status Date / Time meloxicam [From Mobic] AdvReac Nausea Verified 04/25/17 11:19 Review of Systems ROS Statement: Those systems with pertinent positive or pertinent negative responses have been documented in the HPI. ROS Other: All systems not noted in ROS Statement are negative. Constitutional: Denies: fever, chills, weakness Eyes: Denies: vision change Respiratory: Denies: cough, dyspnea, wheezes Cardiovascular: Reports: edema. Denies: chest pain, palpitations, dyspnea on exertion, orthopnea, syncope Endocrine: Reports: fatigue Gastrointestinal: Denies: abdominal pain, nausea, vomiting, diarrhea Genitourinary: Denies: dysuria, hematuria Musculoskeletal: Denies: back pain Skin: Denies: rash Neurological: Denies: weakness, numbness Past Medical History Past Medical History: Coronary Artery Disease (CAD), COPD, Hyperlipidemia, Hypertension, Liver Disease Additional Past Medical History / Comment(s): CHRONIC RECURRENT BRONCHITIS, CHRONIC LOWER BACK PAIN SPINAL STENOSIS, SCOLIOSIS, CHRONIC LOW FUENTES PAIN, ETOH ( 8 BEERS DAILY), ABNORMAL LFT'S, PT HAS HAD ABDOMINAL PAIN ON AND OFF FOR 4 YRS -SCHEDULED TO GO TO [facility] 05/07/17 FOR WORK UP. History of Any Multi-Drug Resistant Organisms: None Reported Past Surgical History: Heart Catheterization Additional Past Surgical History / Comment(s): 2009 CARDIAC CATH-TREATED MEDICALLY, COLONOSCOPIES/POLYPECTOMY(BENIGN) Past Anesthesia/Blood Transfusion Reactions: No Reported Reaction Past Psychological History: No Psychological Hx Reported Smoking Status: Former smoker Past Alcohol Use History: Daily, Heavy Past Drug Use History: None Reported - Past Family History Father Family Medical History: Myocardial Infarction ([place]) Additional Family Medical History / Comment(s): AT AGE 56 FROM [place] Mother Family Medical History: Cancer, Coronary Artery Disease (CAD) Additional Family Medical History / Comment(s): BREAST CANCER METS TO BONE, CABG , EMPHYSEMA General Exam Limitations: no limitations General appearance: alert, in no apparent distress Head exam: Present: atraumatic, normocephalic Eye exam: Present: normal appearance. Absent: scleral icterus, conjunctival injection Neck exam: Present: normal inspection Respiratory exam: Present: wheezes (There is a trace expiratory wheeze). Absent : respiratory distress, rales, rhonchi, stridor Cardiovascular Exam: Present: regular rate, normal rhythm, normal heart sounds. Absent: systolic murmur, diastolic murmur, rubs, gallop GI/Abdominal exam: Present: soft, organomegaly (Hepatic margin is palpable below the costal margin). Absent: distended, tenderness, guarding, rebound, rigid, pulsatile mass, hernia Extremities exam: Present: normal inspection, normal capillary refill, pedal edema (There is trace of edema at the ankles bilaterally). Absent: calf tenderness Back exam: Present: normal inspection. Absent: CVA tenderness (R), CVA tenderness (L) Neurological exam: Present: alert Skin exam: Present: warm, dry, intact, normal color. Absent: rash Course Vital Signs 07/31/17 07/31/17 07/31/17 02:26 03:06 03:13 Temperature 98.2 F Pulse Rate 86 80 Respiratory 20 18 18 Rate Blood Pressure 158/79 141/78 O2 Sat by Pulse 98 98 Oximetry 07/31/17 04:10 Temperature Pulse Rate 84 Respiratory 18 Rate Blood Pressure 135/74 O2 Sat by Pulse 97 Oximetry Medical Decision Making - Lab Data Result diagrams: 07/31/17 02:38 07/31/17 02:38 Lab Results 07/31/17 07/31/17 07/31/17 Range/Units 02:38 02:38 02:38 WBC 12.2 H (3.8-10.6) k/uL RBC 5.17 (4.30-5.90) m/uL Hgb 15.3 (13.0-17.5) gm/dL Hct 45.1 (39.0-53.0) % MCV 87.3 (80.0-100.0) fL MCH 29.6 (25.0-35.0) pg MCHC 33.9 (31.0-37.0) g/dL RDW 14.4 (11.5-15.5) % Plt Count 268 (150-450) k/uL Neutrophils % 55 % Lymphocytes % 31 % Monocytes % 6 % Eosinophils % 4 % Basophils % 1 % Neutrophils # 6.8 (1.3-7.7) k/uL Lymphocytes # 3.7 (1.0-4.8) k/uL Monocytes # 0.8 (0-1.0) k/uL Eosinophils # 0.5 (0-0.7) k/uL Basophils # 0.1 (0-0.2) k/uL PT (9.0-12.0) sec INR (<1.2) APTT (22.0-30.0) sec D-Dimer (<0.60) mg/L FEU Sodium 138 (137-145) mmol/L Potassium 4.1 (3.5-5.1) mmol/L Chloride 102 (98-107) mmol/L Carbon Dioxide 20 L (22-30) mmol/L Anion Gap 16 mmol/L BUN 10 (9-20) mg/dL Creatinine 0.80 (0.66-1.25) mg/dL Est GFR (MDRD) Af Amer >60 (>60 ml/min/1.73 sqM) Est GFR (MDRD) Non-Af >60 (>60 ml/min/1.73 sqM) Glucose 103 H (74-99) mg/dL Calcium 10.0 (8.4-10.2) mg/dL Magnesium 1.9 (1.6-2.3) mg/dL Total Bilirubin 0.8 (0.2-1.3) mg/dL AST 61 H (17-59) U/L ALT 93 H (21-72) U/L Alkaline Phosphatase 70 (38-126) U/L Total Creatine Kinase 64 (55-170) U/L CK-MB (CK-2) 0.7 (0.0-2.4) ng/mL CK-MB (CK-2) Rel Index 1.1 Troponin I <0.012 (0.000-0.034) ng/mL NT-Pro-B Natriuret Pep pg/mL Total Protein 7.7 (6.3-8.2) g/dL Albumin 4.9 (3.5-5.0) g/dL Urine Color Urine Appearance (Clear) Urine pH (5.0-8.0) Ur Specific [place] (1.001-1.035) Urine Protein (Negative) Urine Glucose (UA) (Negative) Urine Ketones (Negative) Urine Blood (Negative) Urine Nitrite (Negative) Urine Bilirubin (Negative) Urine Urobilinogen (<2.0) mg/dL Ur Leukocyte Esterase (Negative) Serum Alcohol 74 mg/dL 07/31/17 07/31/17 07/31/17 Range/Units 02:38 02:38 03:09 WBC (3.8-10.6) k/uL RBC (4.30-5.90) m/uL Hgb (13.0-17.5) gm/dL Hct (39.0-53.0) % MCV (80.0-100.0) fL MCH (25.0-35.0) pg MCHC (31.0-37.0) g/dL RDW (11.5-15.5) % Plt Count (150-450) k/uL Neutrophils % % Lymphocytes % % Monocytes % % Eosinophils % % Basophils % % Neutrophils # (1.3-7.7) k/uL Lymphocytes # (1.0-4.8) k/uL Monocytes # (0-1.0) k/uL Eosinophils # (0-0.7) k/uL Basophils # (0-0.2) k/uL PT 10.4 (9.0-12.0) sec INR 1.0 (<1.2) APTT 26.1 (22.0-30.0) sec D-Dimer 0.27 (<0.60) mg/L FEU Sodium (137-145) mmol/L Potassium (3.5-5.1) mmol/L Chloride (98-107) mmol/L Carbon Dioxide (22-30) mmol/L Anion Gap mmol/L BUN (9-20) mg/dL Creatinine (0.66-1.25) mg/dL Est GFR (MDRD) Af Amer (>60 ml/min/1.73 sqM) Est GFR (MDRD) Non-Af (>60 ml/min/1.73 sqM) Glucose (74-99) mg/dL Calcium (8.4-10.2) mg/dL Magnesium (1.6-2.3) mg/dL Total Bilirubin (0.2-1.3) mg/dL AST (17-59) U/L ALT (21-72) U/L Alkaline Phosphatase (38-126) U/L Total Creatine Kinase (55-170) U/L CK-MB (CK-2) (0.0-2.4) ng/mL CK-MB (CK-2) Rel Index Troponin I (0.000-0.034) ng/mL NT-Pro-B Natriuret Pep 36 pg/mL Total Protein (6.3-8.2) g/dL Albumin (3.5-5.0) g/dL Urine Color Light Yellow Urine Appearance Clear (Clear) Urine pH 5.0 (5.0-8.0) Ur Specific [place] 1.004 (1.001-1.035) Urine Protein Negative (Negative) Urine Glucose (UA) Negative (Negative) Urine Ketones Negative (Negative) Urine Blood Negative (Negative) Urine Nitrite Negative (Negative) Urine Bilirubin Negative (Negative) Urine Urobilinogen <2.0 (<2.0) mg/dL Ur Leukocyte Esterase Negative (Negative) Serum Alcohol mg/dL - EKG Data -: EKG Interpreted by Ms EKG shows normal: sinus rhythm, axis (Normal), intervals (Normal), QRS complexes (Incomplete right bundle-branch block.) Rate: normal (Rate 73 bpm) Interpretation: nonspecific ST-T wave changes Disposition Clinical Impression: Leg swelling Disposition: HOME SELF-CARE Condition: Good Instructions: Leg Edema (ED) Referrals: Ramez Aragon MD [Primary Care Provider] - 1-2 days
[2017-07-31 03:19] LABS: Basophils # (A) 0.1 k/uL (0-0.2); Basophils % (A) 1 %; CH 31.1; CHCM 35.8; Eosinophils # (A) 0.5 k/uL (0-0.7); Eosinophils % (A) 4 %; HCT 45.1 % (39.0-53.0); HDW 2.43; HGB 15.3 gm/dL (13.0-17.5); Luc # (Auto) 0.33; Luc % (Auto) 3; Lymphocytes # (A) 3.7 k/uL (1.0-4.8); Lymphocytes % (A) 31 %; MCH 29.6 pg (25.0-35.0); MCHC 33.9 g/dL (31.0-37.0); MCV 87.3 fL (80.0-100.0); Mean Platelet Volume 8.8; Monocytes # (A) 0.8 k/uL (0-1.0); Monocytes % (A) 6 %; Neutrophils # (A) 6.8 k/uL (1.3-7.7); Neutrophils % (A) 55 %; RBC 5.17 m/uL (4.30-5.90); RDW 14.4 % (11.5-15.5); WBC 12.2 k/uL (3.8-10.6); WBC (Perox) 11.68
[2017-07-31 03:19] LABS: Appearance,Urine Clear (Clear); Bilirubin,Urine Negative (Negative); Glucose,Urine (UA) Negative (Negative); Ketones,Urine Negative (Negative); Leukocyte Esterase,Urine Negative (Negative); Nitrite,Urine Negative (Negative); Protein,Urine Negative (Negative); Specific Gravity,Urine 1.004 (1.001-1.035); UA Billing (MACRO vs. MICRO) CHEM; Urobilinogen,Urine <2.0 mg/dL (<2.0)
[2017-07-31 03:29] LABS: Alcohol 74 mg/dL; Anion Gap 16 mmol/L; Carbon Dioxide 20 mmol/L (22-30); Chloride 102 mmol/L (98-107); Glucose 103 mg/dL (74-99); Non-African American GFR(MDRD) >60 (>60 ml/min/1.73 sqM); Sodium 138 mmol/L (137-145); Total Bilirubin 0.8 mg/dL (0.2-1.3); Total Protein 7.7 g/dL (6.3-8.2)
[2017-07-31 03:34] LABS: Partial Thromboplastin Time 26.1 sec (22.0-30.0); Prothrombin Time 10.4 sec (9.0-12.0)
[2017-07-31 03:44] LABS: ALT 93 U/L (21-72); AST 61 U/L (17-59); Alkaline Phosphatase 70 U/L (38-126); Blood Urea Nitrogen 10 mg/dL (9-20); Magnesium 1.9 mg/dL (1.6-2.3); Potassium 4.1 mmol/L (3.5-5.1)
[2017-07-31 03:57] LABS: Creatine Kinase 64 U/L (55-170)
--- NOTE | 2017-07-31 03:57 | XR ---
EXAM: XR Chest, 1 View CLINICAL HISTORY: Reason: chest pain TECHNIQUE: Frontal view of the chest. COMPARISON: 04/28/2017. FINDINGS: Lungs: Unchanged. No consolidation. Pleural space: Unremarkable. No pneumothorax. Heart: Unremarkable. No cardiomegaly. Mediastinum: Unremarkable. Bones/joints: Unremarkable. Tubes, lines and devices: Monitoring leads overlie the chest limiting evaluation. IMPRESSION: No acute findings.
[2017-07-31 04:10] LABS: Creatine Kinase MB 0.7 ng/mL (0.0-2.4); Troponin I <0.012 ng/mL (0.000-0.034)
[2017-07-31] MEDS ORDERED: FUROSEMIDE 20 MG TAB PO STA (04:46)
[2017-07-31 05:14] VITALS: BP 120/70; PULSE 76; TEMP 98.6
== END 2017-07-31 05:12 | disposition home or self-care (01) ==
LOC: EC 02:21
DX: M79.89 Other specified soft tissue disorders (principal); R06.2 Wheezing; R16.0 Hepatomegaly, not elsewhere classified; R60.0 Localized edema; I45.10 Unspecified right bundle-branch block; R53.83 Other fatigue; I10 Essential (primary) hypertension; I25.10 Atherosclerotic heart disease of native coronary artery without angina pectoris; J44.9 Chronic obstructive pulmonary disease, unspecified; G89.29 Other chronic pain; Z87.891 Personal history of nicotine dependence; Z79.51 Long term (current) use of inhaled steroids; Z79.82 Long term (current) use of aspirin; Z79.899 Other long term (current) drug therapy; Z88.6 Allergy status to analgesic agent; Z95.818 Presence of other cardiac implants and grafts
CPT/HCPCS: 36415; 71010; 80053; 80320; 81003; 82550; 82553; 83735; 83880; 84484; 85025; 85379; 85610; 85730; 93005; 99284

== ENCOUNTER 2017-09-02 13:32 | Emergency (ER) | payer BC ==
[2017-09-02] MEDS ORDERED: SODIUM CHLORIDE 0.9% 1,000 ML IV STA (14:04)
[2017-09-02] MEDS ORDERED: SODIUM CHLORIDE 0.9% 500 ML IV STA (14:04)
--- NOTE | 2017-09-02 14:10 | ED ---
General Adult HPI - General Chief complaint: Arrhythmia/Palpitations Stated complaint: Palpitations Time Seen by Provider: 09/02/17 13:46 Source: patient, RN notes reviewed Mode of arrival: ambulatory Limitations: no limitations - History of Present Illness Initial comments: 51-year-old male presents with a 2 day history of palpitations. He's been intermittent coming about every 15 minutes. Constant over the past 24 hours. No chest pain. Patient does have some mild shortness of breath which she states is normal for him as he has COPD. Mild cough. No fever or chills. Patient has no recent change in medications. Patient does have history of heart arrhythmia in the past which was related to low potassium levels. No nausea vomiting or diarrhea. No abdominal pain. No headache. - Related Data Home Medications Medication Instructions Recorded Confirmed Albuterol Inhaler [Ventolin Hfa 2 puff INHALATION RT-QID PRN 08/22/16 09/02/17 Inhaler] Hydrocodone/Acetaminophen 1 tab PO Q6H PRN 08/22/16 09/02/17 [Hydrocodon-Acetaminoph 7.5-325] Metoprolol Tartrate [Lopressor] 25 mg PO DAILY 08/22/16 09/02/17 amLODIPine BESYLATE [Amlodipine 10 mg PO DAILY 08/22/16 09/02/17 Besylate] Aspirin 325 mg PO DAILY 03/01/17 09/02/17 Lisinopril [Prinivil] 10 mg PO DAILY 03/01/17 09/02/17 Nicotine Polacrilex [Quit 4] 4 mg BUCCAL Q2H PRN 03/01/17 09/02/17 EPINEPHrine [Epipen 2-Rodrigo] 0.3 mg IM ONCE PRN 09/02/17 09/02/17 Multivit-Min/FA/Lycopen/Lutein 1 tab PO DAILY 09/02/17 09/02/17 [Centrum Silver Tablet] Tiotropium Br/Olodaterol HCl 2 puff INHALATION RT-DAILY 09/02/17 09/02/17 [Stiolto Respimat Inhal Natalia] Allergies Allergy/AdvReac Type Severity Reaction Status Date / Time meloxicam [From Mobic] AdvReac Nausea Verified 09/02/17 13:53 Review of Systems ROS Statement: Those systems with pertinent positive or pertinent negative responses have been documented in the HPI. ROS Other: All systems not noted in ROS Statement are negative. Past Medical History Past Medical History: Coronary Artery Disease (CAD), COPD, Hyperlipidemia, Hypertension, Liver Disease Additional Past Medical History / Comment(s): CHRONIC RECURRENT BRONCHITIS, CHRONIC LOWER BACK PAIN SPINAL STENOSIS, SCOLIOSIS, CHRONIC LOW FUENTES PAIN, ETOH ( 8 BEERS DAILY), ABNORMAL LFT'S, PT HAS HAD ABDOMINAL PAIN ON AND OFF FOR 4 YRS -SCHEDULED TO GO TO [facility] 05/07/17 FOR WORK UP. History of Any Multi-Drug Resistant Organisms: None Reported Past Surgical History: Heart Catheterization Additional Past Surgical History / Comment(s): 2008 CARDIAC CATH-TREATED MEDICALLY, COLONOSCOPIES/POLYPECTOMY(BENIGN) Past Anesthesia/Blood Transfusion Reactions: No Reported Reaction Past Psychological History: No Psychological Hx Reported Smoking Status: Former smoker Past Alcohol Use History: Daily Past Drug Use History: None Reported - Past Family History Father Family Medical History: Myocardial Infarction ([place]) Additional Family Medical History / Comment(s): AT AGE 56 FROM [place] Mother Family Medical History: Cancer, Coronary Artery Disease (CAD) Additional Family Medical History / Comment(s): BREAST CANCER METS TO BONE, CABG , EMPHYSEMA General Exam Limitations: no limitations General appearance: alert, in no apparent distress Head exam: Present: atraumatic, normocephalic Eye exam: Present: normal appearance, PERRL ENT exam: Present: normal exam, normal oropharynx Neck exam: Present: normal inspection. Absent: tenderness, meningismus Respiratory exam: Present: wheezes. Absent: respiratory distress Cardiovascular Exam: Present: regular rate, normal rhythm GI/Abdominal exam: Present: soft. Absent: distended, tenderness Extremities exam: Present: normal inspection Back exam: Present: normal inspection, full ROM Neurological exam: Present: alert, oriented X3, CN II-XII intact. Absent: motor sensory deficit Psychiatric exam: Present: normal affect, normal mood Skin exam: Present: warm, dry, intact. Absent: cyanosis Course Vital Signs 09/02/17 09/02/17 13:37 14:42 Temperature 98.4 F Pulse Rate 89 52 L Respiratory 20 18 Rate Blood Pressure 171/85 130/79 O2 Sat by Pulse 98 98 Oximetry EKG Findings - EKG Comments: EKG Findings:: EKG shows incomplete right bundle branch block, normal sinus rhythm, ventricular rate 84, VT interval 164, QRS duration 102, QTC 465, no ST segment elevation or depression, EKG is compared to previous EKG July 2017 , unchanged. Medical Decision Making - Medical Decision Making 51-year-old male presenting with palpitations. EKG nonischemic, unchanged from previous, there is a right bundle branch block, normal sinus rhythm is present. Laboratory studies including CBC, CMP, and cardiac enzymes unremarkable. Electrolytes all within normal limits. Patient does have an episode with single palpitation wall emergency department, this is captured on rhythm strip, this is a PVC. Patient has no other complaints, no chest pain. Patient is currently on metoprolol. He will continue this medication. Will follow up with both his primary care physician and his bander. - Lab Data Result diagrams: 09/02/17 13:55 09/02/17 13:55 Lab Results 09/02/17 09/02/17 09/02/17 Range/Units 13:55 13:55 13:55 WBC 13.5 H (3.8-10.6) k/uL RBC 5.66 (4.30-5.90) m/uL Hgb 17.0 (13.0-17.5) gm/dL Hct 51.6 (39.0-53.0) % MCV 91.1 (80.0-100.0) fL MCH 30.0 (25.0-35.0) pg MCHC 33.0 (31.0-37.0) g/dL RDW 13.2 (11.5-15.5) % Plt Count 247 (150-450) k/uL Neutrophils % 70 % Lymphocytes % 19 % Monocytes % 7 % Eosinophils % 1 % Basophils % 1 % Neutrophils # 9.4 H (1.3-7.7) k/uL Lymphocytes # 2.6 (1.0-4.8) k/uL Monocytes # 0.9 (0-1.0) k/uL Eosinophils # 0.2 (0-0.7) k/uL Basophils # 0.1 (0-0.2) k/uL PT (9.0-12.0) sec INR (<1.2) APTT (22.0-30.0) sec Sodium 140 (137-145) mmol/L Potassium 4.7 (3.5-5.1) mmol/L Chloride 104 (98-107) mmol/L Carbon Dioxide 20 L (22-30) mmol/L Anion Gap 16 mmol/L BUN 8 L (9-20) mg/dL Creatinine 0.76 (0.66-1.25) mg/dL Est GFR (MDRD) Af Amer >60 (>60 ml/min/1.73 sqM) Est GFR (MDRD) Non-Af >60 (>60 ml/min/1.73 sqM) Glucose 105 H (74-99) mg/dL Calcium 10.0 (8.4-10.2) mg/dL Magnesium 2.3 (1.6-2.3) mg/dL Total Bilirubin 0.9 (0.2-1.3) mg/dL AST 114 H (17-59) U/L ALT 104 H (21-72) U/L Alkaline Phosphatase 93 (38-126) U/L Total Creatine Kinase 37 L (55-170) U/L CK-MB (CK-2) 0.6 (0.0-2.4) ng/mL CK-MB (CK-2) Rel Index 1.6 Troponin I <0.012 (0.000-0.034) ng/mL Total Protein 7.9 (6.3-8.2) g/dL Albumin 4.8 (3.5-5.0) g/dL TSH 1.260 (0.465-4.680) mIU/L 09/02/17 Range/Units 13:55 WBC (3.8-10.6) k/uL RBC (4.30-5.90) m/uL Hgb (13.0-17.5) gm/dL Hct (39.0-53.0) % MCV (80.0-100.0) fL MCH (25.0-35.0) pg MCHC (31.0-37.0) g/dL RDW (11.5-15.5) % Plt Count (150-450) k/uL Neutrophils % % Lymphocytes % % Monocytes % % Eosinophils % % Basophils % % Neutrophils # (1.3-7.7) k/uL Lymphocytes # (1.0-4.8) k/uL Monocytes # (0-1.0) k/uL Eosinophils # (0-0.7) k/uL Basophils # (0-0.2) k/uL PT 10.2 (9.0-12.0) sec INR 1.0 (<1.2) APTT 25.5 (22.0-30.0) sec Sodium (137-145) mmol/L Potassium (3.5-5.1) mmol/L Chloride (98-107) mmol/L Carbon Dioxide (22-30) mmol/L Anion Gap mmol/L BUN (9-20) mg/dL Creatinine (0.66-1.25) mg/dL Est GFR (MDRD) Af Amer (>60 ml/min/1.73 sqM) Est GFR (MDRD) Non-Af (>60 ml/min/1.73 sqM) Glucose (74-99) mg/dL Calcium (8.4-10.2) mg/dL Magnesium (1.6-2.3) mg/dL Total Bilirubin (0.2-1.3) mg/dL AST (17-59) U/L ALT (21-72) U/L Alkaline Phosphatase (38-126) U/L Total Creatine Kinase (55-170) U/L CK-MB (CK-2) (0.0-2.4) ng/mL CK-MB (CK-2) Rel Index Troponin I (0.000-0.034) ng/mL Total Protein (6.3-8.2) g/dL Albumin (3.5-5.0) g/dL TSH (0.465-4.680) mIU/L Disposition Clinical Impression: Palpitations, PVC (premature ventricular contraction) Disposition: HOME SELF-CARE Condition: Good Instructions: Palpitations (ED) Referrals: Ramez Aragon MD [Primary Care Provider] - 1-2 days Time of Disposition: 15:31
[2017-09-02 14:29] LABS: Basophils # (A) 0.1 k/uL (0-0.2); Basophils % (A) 1 %; CH 29.7; CHCM 32.7; Eosinophils # (A) 0.2 k/uL (0-0.7); Eosinophils % (A) 1 %; HCT 51.6 % (39.0-53.0); Luc # (Auto) 0.28; Luc % (Auto) 2; Lymphocytes # (A) 2.6 k/uL (1.0-4.8); Lymphocytes % (A) 19 %; MCV 91.1 fL (80.0-100.0); Mean Platelet Volume 7.7; Monocytes # (A) 0.9 k/uL (0-1.0); Monocytes % (A) 7 %; Neutrophils # (A) 9.4 k/uL (1.3-7.7); Neutrophils % (A) 70 %; RBC 5.66 m/uL (4.30-5.90); RDW 13.2 % (11.5-15.5); WBC 13.5 k/uL (3.8-10.6); WBC (Perox) 12.98
[2017-09-02 14:30] LABS: Partial Thromboplastin Time 25.5 sec (22.0-30.0); Prothrombin Time 10.2 sec (9.0-12.0)
--- NOTE | 2017-09-02 14:30 | XR ---
EXAMINATION TYPE: XR chest 2V DATE OF EXAM: 09/02/2017 COMPARISON: Prior chest x-ray 08/10/2017 HISTORY: Dysrhythmia TECHNIQUE: Frontal and lateral views of the chest are obtained. FINDINGS: There is no focal air space opacity, pleural effusion, or pneumothorax seen. The cardiac silhouette size is within normal limits. There are overlying cardiac leads. Calcified mediastinal and hilar nodes likely are due to old granulomatous disease. Calcified nodule left lower lobe is stable. Prominent lung volumes may be indicative of COPD. Patient is rotated. The osseous structures are int act. IMPRESSION: No acute cardiopulmonary process.
[2017-09-02 14:38] LABS: ALT 104 U/L (21-72); AST 114 U/L (17-59); Alkaline Phosphatase 93 U/L (38-126); Anion Gap 16 mmol/L; Blood Urea Nitrogen 8 mg/dL (9-20); Carbon Dioxide 20 mmol/L (22-30); Chloride 104 mmol/L (98-107); Glucose 105 mg/dL (74-99); Magnesium 2.3 mg/dL (1.6-2.3); Non-African American GFR(MDRD) >60 (>60 ml/min/1.73 sqM); Potassium 4.7 mmol/L (3.5-5.1); Sodium 140 mmol/L (137-145); Total Bilirubin 0.9 mg/dL (0.2-1.3); Total Protein 7.9 g/dL (6.3-8.2)
[2017-09-02 14:41] LABS: Creatine Kinase 37 U/L (55-170)
[2017-09-02 14:43] VITALS: RESP 18
[2017-09-02 14:55] LABS: Creatine Kinase MB 0.6 ng/mL (0.0-2.4); Troponin I <0.012 ng/mL (0.000-0.034)
[2017-09-02 15:43] VITALS: BP 127/89; PULSE 68; TEMP 98.5
== END 2017-09-02 15:43 | disposition home or self-care (01) ==
LOC: EC 13:32
DX: I49.3 Ventricular premature depolarization (principal); I45.10 Unspecified right bundle-branch block; J44.9 Chronic obstructive pulmonary disease, unspecified; I25.10 Atherosclerotic heart disease of native coronary artery without angina pectoris; E78.5 Hyperlipidemia, unspecified; I10 Essential (primary) hypertension; Z95.5 Presence of coronary angioplasty implant and graft; Z79.82 Long term (current) use of aspirin; Z79.899 Other long term (current) drug therapy; Z87.891 Personal history of nicotine dependence
CPT/HCPCS: 36415; 71020; 80053; 82550; 82553; 83735; 84443; 84484; 85025; 85610; 85730; 93005; 96360; 99285